=== PATIENT | female | born 1935 | race African-American/Black ===

== ENCOUNTER 2017-12-05 13:35 | Inpatient (IN) | payer OTHER, MEDICAID ==
[~2017-12-05] VITALS: Ht 162.6 cm; Wt 40.8 kg
[2017-12-05 13:38] VITALS: BP 117/68
--- NOTE | 2017-12-05 13:45 | NUR ---
PATIENT [place] FROM [facility], PT'S PMD HAD PT COME TO ER FOR FURTHER EVALUATION AND TREATMENT, LAST HGB 6.5 COLLECTED 12/04/2017, ASYSTEMPMATIC, DENIES RECTAL BLEEDING OR HEMATEMESIS, AAOX4; LUNGS CLEAR BL; HR EVEN AND REGULAR; PT DENIES ANY FEVER, CP, SOB, OR COUGH AT THIS TIME; DENIES PAIN; VSS; DENIES N/V/D; SKIN IS PINK/WARM/DRY. GT IN PLACE NOTED, INCONTINENT WITH B&B'S, LEFT BKA NOTED WITH PROSTHETIC LEGS, PATIENT POSITIONED FOR COMFORT; HOB ELEVATED; BEDRAILS UP X2; BED DOWN. ER MD MADE AWARE OF PT STATUS.
[2017-12-05] MEDS ORDERED: XALOS BOTH EYES (14:02)
[2017-12-05] MEDS ORDERED: FER300L GT (14:02)
[2017-12-05] MEDS ORDERED: DORZ10SO23 BOTH EYES (14:02)
[2017-12-05] MEDS ORDERED: ALPOS BOTH EYES (14:02)
[2017-12-05] MEDS ORDERED: ALBU0.0912 IH (14:02)
--- NOTE | 2017-12-05 14:30 | NUR ---
Patient being evaluated by physician at bedside.
[2017-12-05 14:57] LABS: BASOPHILS % (AUTO) 0.1 % (0.0-2.0); HEMATOCRIT 23.8 % (36-48); HEMOGLOBIN 7.7 g/dL (12.0-16.0); LYMPHOCYTES # (AUTO) 1.4 K/uL (2.5-16.5); LYMPHOCYTES % (AUTO) 29.5 % (20.5-51.1); MEAN CORPUSCULAR HEMOGLOBIN 33 pg (27-31); MEAN CORPUSCULAR HGB CONC 33 g/dL (33-37); MEAN CORPUSCULAR VOLUME 102.3 fL (80-94); MONOCYTES # (AUTO) 0.8 K/uL (0.8-1.0); MONOCYTES % (AUTO) 15.8 % (1.7-9.3); NEUTROPHILS # (AUTO) 2.6 K/uL (1.8-7.7); NEUTROPHILS % (AUTO) 53.6 % (42.2-75.2); PLATELET COUNT (AUTO) 114 K/uL (140-450); RED BLOOD CELL COUNT(AUTO) 2.33 MIL/uL (4.20-5.40); RED CELL DISTRIBUTION WIDTH 22.6 % (11.6-13.7); WHITE BLOOD COUNT (AUTO) 4.8 K/uL (4.8-10.8)
[2017-12-05 15:09] LABS: ALBUMIN 2.7 g/dL (3.4-5.0); ANION GAP 10.9 (8-16); ASPARTATE AMINOTRANSFERASE 87 U/L (15-37); CARBON DIOXIDE 25.5 mmol/L (21-32); CHLORIDE 99 mmol/L (98-107); CREATININE 1.4 mg/dL (0.6-1.3); GLUCOSE 152 mg/dL (74-106); POTASSIUM 4.4 mmol/L (3.5-5.1); SODIUM SERUM 131 mmol/L (136-145); TOTAL BILIRUBIN 0.3 mg/dL (0.0-1.0); UREA NITROGEN, BLOOD 59 mg/dL (7-18)
--- NOTE | 2017-12-05 15:30 | NUR ---
PT IS RESTING IN BED, NO S/S OF DISTRESS, DENIES PAIN, VSS.
[2017-12-05] MEDS ORDERED: LORazepam 2 MG/ML VIAL IM/IVP PRN (15:40)
[2017-12-05] MEDS ORDERED: MORPHINE SULFATE 2 MG/ML SYR IVP PRN (15:40)
[2017-12-05] MEDS ORDERED: DOCUSATE SODIUM 100 MG GELCAP PO PRN (15:40)
[2017-12-05] MEDS ORDERED: HYDROcodone/APAP 5/325 MG 1 TAB TAB PO PRN (15:40)
[2017-12-05] MEDS ORDERED: ZOLPIDEM 5 MG TAB PO PRN (15:40)
[2017-12-05] MEDS: NACL 0.9% 1,000 ML IV SCH (15:40)
[2017-12-05] MEDS ORDERED: ONDANSETRON 4 MG/2 ML VIAL IM/IVP PRN (15:40)
[2017-12-05] MEDS ORDERED: ACETAMINOPHEN 325 MG TAB PO PRN (15:40)
[2017-12-05 16:12] LABS: PROTHROMBIN TIME 10.7 secs (10.8-13.4)
[2017-12-05 16:23] LABS: CHOL/HDL RATIO 1.9 (1-4.5); MAGNESIUM 1.7 mg/dL (1.8-2.4); PHOSPHORUS 3.8 mg/dL (2.5-4.9); THYROID STIMULATING HORMONE 1.08 uIU/mL (0.34-3.74)
--- NOTE | 2017-12-05 16:40 | NUR ---
Patient will be admitted to care of DR. ARMENTA. Admited to TELE. Will go to room 107A. Belongings list completed. Report to STEVE RN AT BEDSIDE, VSS, DENIES PAIN. .
--- NOTE | 2017-12-05 16:40 | NUR ---
Admitted from ER , with chief complaint of ABNORMAL LABS , 82 y/o ,Female, Appropriate, AAOX4, NO S/S OF ACUTE DISTRESS. G-TUBE NOTED, LEFT BKA NOTED. PT oriented to call light, bed, phone,television, bathroom, smoking policy, visiting hours, procedures, ID bracelet on. Belongings list checked. CALL LIGHT WITHIN REACH. SAFETY MEASURES ENSURED. WILL CONTINUE TO MONITOR.
[2017-12-05 16:52] VITALS: BP 113/60
[2017-12-05] MEDS ORDERED: MAG SULF 2000 MG/WATER PREMIX 50 ML IV ONE (18:35)
[2017-12-05] MEDS ORDERED: APIX2.5 PO (18:38)
[2017-12-05] MEDS ORDERED: MAGNESIUM SULFATE 1GM in DEXTROSE 5% 100 ML PREMIX IV SCH (18:45)
[2017-12-05] MEDS ORDERED: DEXTROSE 50% 50 ML SYR IVP PRN (18:45)
--- NOTE | 2017-12-05 19:08 | NUR ---
ENDORSED PLAN OF CARE TO NIGHT RN.
--- NOTE | 2017-12-05 19:09 | NUR ---
RECEIVED BEDSIDE REPORT FROM DAY SHIFT NURSE STEVE RN, PT STABLE, NO DISTRESS NOTED, IV TO L AC 20G RUNNING NS @ 60ML/HR, PATENT, INTACT, INFUSING WELL, PT ON ROOM AIR, NO SOB, PT STATED HAVING NO PAIN AT THIS MOMENT, INITIAL ASSESSMENT DONE, ALL SAFETY PRECAUTION MET, WILL CONTINUE TO MONITOR.
[2017-12-05 20:00] VITALS: BP 105/59
[2017-12-05] MEDS ORDERED: FOLIC ACID 1 MG TAB PO SCH (20:00)
[2017-12-05] MEDS ORDERED: CYANOCOBALAMIN 100 MCG TAB PO SCH (20:00)
--- NOTE | 2017-12-05 20:25 | NUR ---
PT STATED HAS BEEN TAKING MEDICATION THROUGH GTUBE, MEDICATION ADMINISTERED THROUGH G TUBE, PT TOLERATED WELL, G TUBE HAS NO RESIDUAL, PT STABLE, CALL LIGHT WITHIN REACH, WILL CONTINUE TO MONITOR.
[2017-12-05] MEDS: APIXABAN 2.5 MG TAB PO SCH (20:28)
[2017-12-05] MEDS: BLOOD GLUCOSE MONITORING 1 DEV DEV FS SCH (20:30)
--- NOTE | 2017-12-05 20:45 | NUR ---
CALLED SAFETY ADMINISTRATOR MARTÍN REGARDING PT MAGNESIUM ORDER NOT AVAILABLE AT UNIT, KENO CLERK STATED UNDERSTANDING, WILL LOOK FOR THE MEDICATION. PT RESTING, NO DISTRESS NOTED, CALL LIGHT WITHIN REACH, WILL CONTINUE TO MONITOR.
[2017-12-05] MEDS ORDERED: MAGNESIUM SULFATE 50% 1000 MG/2 ML VIAL IV ONE ×3 (20:54→23:25)
[2017-12-05] MEDS ORDERED: NON-FORMULARY ITEM (Dorzolamide HCl/Timolol Maleat (Dorzolamide-Timolol Eye Drops) 1 DROP) BOTH EYES SCH (21:00)
[2017-12-05] MEDS ORDERED: MISC INJECTION 1 EA in DEXTROSE 5% 100 ML IV SCH (21:00)
--- NOTE | 2017-12-05 21:15 | NUR ---
MAGNESIUM INFUSION STARTED, PT TOLERATED WELL, NO DISTRESS NOTED, CALL LIGHT WITHIN REACH, WILL CONTINUE TO MONITOR.
[2017-12-05] MEDS: MAGNESIUM SULFATE IV SCH ×2 (21:25→23:35)
[2017-12-05] MEDS: DEXTROSE 5% IV SCH ×2 (21:25→23:35)
--- NOTE | 2017-12-05 21:51 | NUR ---
NOTIFIED DR. CRESPO AND FORD REGARDING UA ORDERED AND PT UNABLE TO URINATE IN THE RESTROOM AND HAS BEEN INCONTINENT, STATED UNDERSTANDING, STATED WILL PUT IN ORDER FOR STRAIGHT CATH, WILL CONTINUE WITH ORDERS.
--- NOTE | 2017-12-05 23:35 | NUR ---
2ND BAG OF MAGNESIUM ADMINISTERED, PT TOLERATED WELL, NO DISTRESS NOTED, CALL LIGHT WITHIN REACH, WILL CONTINUE TO MONITOR.
[2017-12-06] VITALS: BP 137/71
--- NOTE | 2017-12-06 02:04 | NUR ---
ATTEMPT TO STRAIGHT CATH PT, PT REFUSED STRAIGHT CATH, PT STABLE, NO DISTRESS NOTED, CALL LIGHT WITHIN REACH, WILL CONTINUE TO MONITOR.
--- NOTE | 2017-12-06 03:55 | NUR ---
CHECKED ON PT, PT SLEEPING, V/S TAKEN, WNL, NO DISTRESS NOTED, CALL LIGHT WITHIN REACH, WILL CONTINUE TO MONITOR.
[2017-12-06 04:00] VITALS: BP 128/61
[2017-12-06] MEDS: BLOOD GLUCOSE MONITORING 1 DEV DEV FS SCH ×4 (06:02→21:07)
--- NOTE | 2017-12-06 06:05 | NUR ---
CHECKED PT BLOOD SUGAR 86, PT TOLERATED WELL. PT STABLE, NO DISTRESS NOTED, CALL LIGHT WITHIN REACH, WILL CONTINUE TO MONITOR.
--- NOTE | 2017-12-06 07:10 | NUR ---
ENDORSED PLAN OF CARE TO DAY SHIFT NURSE [facility] RN, PT STABLE, NO DISTRESS NOTED, CALL LIGHT WITHIN REACH.
--- NOTE | 2017-12-06 07:10 | NUR ---
RECEIVED BEDSIDE REPORT FROM HARPER LUNA, PT STABLE, RESTING IN BED, ON RA, IV IN LEFT AC RUNNING AT 60 ML/HR. G-TUBE CLEAN AND DRESSING INTACT, UPDATED BOARD, EXPLAINED PLAN OF CARE, CALL LIGHT WITHIN REACH, BED IN LOWEST POSITION, V/S TAKEN, TOLERATED WELL, WILL CONTINUE TO MONITOR.
[2017-12-06 08:00] VITALS: BP 148/71
[2017-12-06] MEDS: FERROUS SULFATE 300 MG/5 ML UDC GT SCH (08:45)
[2017-12-06] MEDS: APIXABAN 2.5 MG TAB PO SCH ×2 (08:46→21:07)
[2017-12-06] MEDS: NACL 0.9% 1,000 ML IV SCH (08:50)
--- NOTE | 2017-12-06 08:50 | NUR ---
STARTED NEW BAG IVF 1000 ML NACL IN L AC RUNNING AT 60 ML. SITE CLEAN AND PATENT.
[2017-12-06] MEDS ORDERED: CYANOCOBALAMIN 100 MCG TAB PO SCH (09:00)
[2017-12-06] MEDS ORDERED: FOLIC ACID 1 MG TAB PO SCH (09:00)
[2017-12-06] MEDS: BRIMONIDINE TARTRATE 0.2% OP 5 ML BTL BOTH EYES SCH ×3 (09:00→21:06)
[2017-12-06 09:15] LABS: TRANSFERRIN 226 mg/dL (200-370)
[2017-12-06 09:16] LABS: BASOPHILS % (AUTO) 0.2 % (0.0-2.0); EOSINOPHILS # (AUTO) 0.1 K/uL (0-0.4); EOSINOPHILS % (AUTO) 1.9 % (0.0-4.0); HEMATOCRIT 24.7 % (36-48); LYMPHOCYTES # (AUTO) 1.3 K/uL (2.5-16.5); MEAN CORPUSCULAR HEMOGLOBIN 33 pg (27-31); MEAN CORPUSCULAR HGB CONC 32 g/dL (33-37); MEAN CORPUSCULAR VOLUME 102.1 fL (80-94); MONOCYTES # (AUTO) 0.5 K/uL (0.8-1.0); MONOCYTES % (AUTO) 15.3 % (1.7-9.3); NEUTROPHILS # (AUTO) 1.3 K/uL (1.8-7.7); NEUTROPHILS % (AUTO) 41.6 % (42.2-75.2); PLATELET COUNT (AUTO) 117 K/uL (140-450); RED BLOOD CELL COUNT(AUTO) 2.42 MIL/uL (4.20-5.40); RED CELL DISTRIBUTION WIDTH 22.4 % (11.6-13.7); WHITE BLOOD COUNT (AUTO) 3.1 K/uL (4.8-10.8)
[2017-12-06 09:33] LABS: ANION GAP 11.6 (8-16); CARBON DIOXIDE 24.5 mmol/L (21-32); CHLORIDE 102 mmol/L (98-107); CREATININE 1.4 mg/dL (0.6-1.3); GLUCOSE 84 mg/dL (74-106); POTASSIUM 4.1 mmol/L (3.5-5.1); SODIUM SERUM 134 mmol/L (136-145); UREA NITROGEN, BLOOD 53 mg/dL (7-18)
[2017-12-06 09:42] LABS: MAGNESIUM 2.6 mg/dL (1.8-2.4); PHOSPHORUS 3.9 mg/dL (2.5-4.9)
--- NOTE | 2017-12-06 09:51 | NUR ---
PATIENT HAS BEEN SCREENED AND CATEGORIZED HIGH NUTRITION RISK. PATIENT WILL BE SEEN WITHIN 1-2 DAYS OF ADMISSION. 12/06/17-12/07/[address]
--- NOTE | 2017-12-06 10:41 | NUR ---
PT RESTING IN BED, NO SIGNS OF DISTRESS, CALL LIGHT WITHIN REACH, WILL CONTINUE TO MONITOR.
[2017-12-06] MEDS: NICOTINE TRANSD SYS 14 MG/24 HR PATCH TD SCH (11:00)
--- NOTE | 2017-12-06 11:11 | NUR ---
CALLED NEXT OF KIN ([facility]), LEFT MESSAGE TO CALL BACK REGARDING PTS GLAUCOMA MEDICATIONS.
--- NOTE | 2017-12-06 11:50 | NUR ---
SINDI VALENTIN FROM [facility] WILL COME AND BRING PTS GLAUCOMA EYE DROPS IN ABOUT 1-2 HOURS. WILL GIVE TO PHARMACY AND ADMINISTER PER DRS ORDER.
[2017-12-06 12:15] LABS: FOLIC ACID > 20.00 ng/mL (>3.0)
[2017-12-06 12:37] VITALS: BP 117/56
--- NOTE | 2017-12-06 14:54 | NUR ---
CONSULTED WITH RADIATION CONTROL TECHNICIAN AGUSTIN TO START TUBE FEEDINGS AND SWALLOW EVALUATION, WILL CONSULT WITH FOR ORDERS. Addendum: 12/06/17 at 1456 by Haydee Barkley RN DR HERRMANN
--- NOTE | 2017-12-06 15:40 | NUR ---
3 AT HOME GLAUCOMA MEDICATIONS TAKEN TO PHARMACY. WILL GIVE ACCORDING TO DRS ORDER AND ONCE ON UNIT.
--- NOTE | 2017-12-06 16:08 | NUR ---
12/06/17 RD INITIAL ASSESSMENT COMPLETED PLEASE REFER TO NUTRITION ASSESSMENT UNDER CARE ACTIVITY FOR ESTIMATED NUTRITIONAL NEEDS. RD RECOMMENDATIONS: 1. RECOMMEND ORDERING A BEDSIDE SWALLOW EVALUATION TO RULE OUT ANY CHEWING/SWALLOWING DIFFICULTIES PT REPORT EATING A REGULAR DIET PRIOR TO ADMISSION. 2. IF PATIENT WILL START ON TUBE FEEDING PER MDS DISCRETION, CONSIDER ORDERING GLUCERNA 1.2 AT GOAL RATE OF 50 ML/HR + 150 ML OF FREE WATER FLUSH Q6H. START AT 20 ML/HR AND ADVANCE TOLERATED TO GOAL RATE. AT 50 ML/HR TUBE FEEDING WILL PROVIDE 1200 ML OF TOTAL VOLUME, 1440 KCAL, 72 GM OF PROTEIN, AND 966 ML OF FREE WATER (ADEQUATE TO MEET 100% OF ESTIMATED ENERGY NEEDS AND ~109% OF ESTIMATED PROTEIN NEEDS). 3. RD WILL F/U 2-3 DAYS; HIGH RISK. AGUSTIN SCOTT, RD
[2017-12-06] MEDS ORDERED: ALBUTEROL SULFATE/IPRATROPIU 3 ML SOL IH PRN (16:20)
--- NOTE | 2017-12-06 16:22 | NUR ---
STARTED TUBE FEEDINGS PER MD ORDER, PT REQUESTED TO REST AND TAKE A NAP PRIOR TO STRAIGHT CATH. WILL STRAIGHT CATH AND SEND SAMPLE AFTER PTS NAPS.
[2017-12-06 16:28] VITALS: BP 123/59
--- NOTE | 2017-12-06 16:37 | NUR ---
SPUTUM SAMPLE COLLECTED BY RT, SENT TO LAB.
[2017-12-06] MEDS: PIPER/TAZO 2.25GM/D5W PREMIX 50 ML IV SCH ×2 (17:34→23:41)
[2017-12-06 18:08] LABS: BILIRUBIN,URINE NEGATIVE (NEGATIVE); BLOOD, URINE TRACE-I (NEGATIVE); COLOR,URINE YELLOW (YELLOW); LEUKOCYTE ESTERASE ,URINE 2+ (NEGATIVE); NITRITE, URINE NEGATIVE (NEGATIVE); PH,URINE 5.5 (5.0-9.0); UGLUCOSE NEGATIVE (NEGATIVE)
--- NOTE | 2017-12-06 18:10 | NUR ---
URINE SAMPLE COLLECTED SENT TO LAB.
[2017-12-06 18:32] LABS: APPEARANCE,URINE HAZY (CLEAR)
[2017-12-06 18:50] LABS: BARBITURATE, URINE NEGATIVE ng/ml (NEG <=200); BENZODIAZEPINE, URINE NEGATIVE ng/mL (NEG <=200); CANNABINOID, URINE NEGATIVE ng/mL (NEG <=50); COCAINE, URINE NEGATIVE ng/mL (NEG <=300); OPIATE, URINE NEGATIVE ng/mL (NEG <=2000); PHENCYCLIDINE SCREEN,URINE NEGATIVE ng/mL (NEG <=25)
[2017-12-06 18:55] LABS: RBC,URINE 0-5 (RARE) /HPF (0-5)
--- NOTE | 2017-12-06 19:32 | NUR ---
ENDORSED PT TO COLLECTION CORRESPONDENT NURSE SARA. PAUL HALL.
--- NOTE | 2017-12-06 19:33 | NUR ---
RECEIVED BEDSIDE REPORT FROM DAY SHIFT NURSE ADRIANE-RN. PT AOX4-STABLE, RESTING IN BED, ON RA, IV IN LEFT AC RUNNING AT 60 ML/HR. G-TUBE CLEAN AND DRESSING INTACT WITH ZERO RESIDUAL RUNNING AT 35ML/HR GLUCERNA 1.2. DISCUSSED PLAN OF CARE AND PT VERBALIZED UNDERSTANDING. NO S/S OF RESPIRATORY DISTRESS OR DISCOMFORT NOTED AT THIS TIME. UPDATED BOARD. BED IN LOWEST POSITION, BED BREAKS ON, BOTH SIDE RAILS UP, HOB ELEVATED FOR ASPIRATION PRECAUTIONS, BED ALARM ON. BED SIDE TABLE AND CALL LIGHT WITHIN REACH. WILL CONTINUE TO MONITOR.
[2017-12-06] MEDS: ALBUTEROL SULFATE/IPRATROPIU 3 ML SOL IH SCH (19:52)
[2017-12-06 20:00] VITALS: BP 95/52
--- NOTE | 2017-12-06 20:00 | NUR ---
VITAL SIGNS TAKEN AND TOLERATED WELL. NO S/S OF RESPIRATORY DISTRESS OR DISCOMFORT NOTED AT THIS TIME. WILL CONTINUE TO MONITOR.
--- NOTE | 2017-12-06 20:15 | NUR ---
BLOOD GLUCOSE 98-NO INSULIN COVERAGE NEEDED.
[2017-12-06] MEDS: DORZOLAMIDE 2% OP 10 ML BTL OP SCH (21:05)
[2017-12-06] MEDS: LATANOPROST 0.005% OP 2.5 ML BTL BOTH EYES SCH (21:06)
--- NOTE | 2017-12-06 21:10 | NUR ---
SCHEDULED MEDICATION GIVEN AND TOLERATED WELL. NO S/S OF RESPIRATORY DISTRESS OR DISCOMFORT NOTED AT THIS TIME. WILL CONTINUE TO MONITOR.
--- NOTE | 2017-12-06 23:00 | NUR ---
PT RESTING COMFORTABLY IN BED WATCHING TV. WILL CONTINUE TO MONITOR.
--- NOTE | 2017-12-06 23:45 | NUR ---
SCHEDULED MEDICATION GIVEN AND TOLERATED WELL. PT ASKED WHAT THE ANTIBIOTIC WAS FOR. EDUCATED PT THAT SHE HAS ASPIRATED PNEUMONIA. NO S/S OF RESPIRATORY DISTRESS OR DISCOMFORT NOTED AT THIS TIME. PT CONTINUES TO REST IN BED WATCHING TV. WILL CONTINUE TO MONITOR.
[2017-12-07] VITALS: BP 126/62
--- NOTE | 2017-12-07 | NUR ---
VITAL SIGNS TAKEN AND TOLERATED WELL. NO S/S OF RESPIRATORY DISTRESS OR DISCOMFORT NOTED AT THIS TIME. WILL CONTINUE TO MONITOR.
[2017-12-07] MEDS: NACL 0.9% 1,000 ML IV SCH ×2 (00:38→16:05)
--- NOTE | 2017-12-07 02:00 | NUR ---
PT SLEEPING AT THIS TIME. NO S/S OF RESPIRATORY DISTRESS OR DISCOMFORT NOTED AT THIS TIME. WILL CONTINUE TO MONITOR. +
[2017-12-07 04:00] VITALS: BP 119/55
--- NOTE | 2017-12-07 04:00 | NUR ---
VITAL SIGNS TAKEN AND TOLERATED WELL. NO S/S OF RESPIRATORY DISTRESS OR DISCOMFORT NOTED. PT RESTING IN BED. WILL CONTINUE TO MONITOR.
[2017-12-07] MEDS: PIPER/TAZO 2.25GM/D5W PREMIX 50 ML IV SCH ×3 (05:28→18:56)
[2017-12-07 05:35] LABS: FERRITIN 359 ng/mL (15-150)
[2017-12-07] MEDS: BLOOD GLUCOSE MONITORING 1 DEV DEV FS SCH ×4 (06:41→20:27)
--- NOTE | 2017-12-07 07:10 | NUR ---
ENDORSED PT CARE TO DAY SHIFT NURSE SUMMER-RN FOR CONTINUITY OF CARE.
--- NOTE | 2017-12-07 07:10 | NUR ---
RECEIVED REPORT FROM GEODETIC SURVEY DIRECTOR NURSE PAUL BROWN STABLE IN BED, NO REPORTS OF PAIN, TUBE FEEDINGS AT 30 ML/PER WITH 150 WATER FLUSH Q6H. IV AT 60ML PER HOUR NACL, IV SITE PATENT AND INTACT, CALL LIGHT WITHIN REACH, BED IN LOWEST POSITION. EXPLAINED PLAN OF CARE UPDATED BOARD.
[2017-12-07] MEDS: ALBUTEROL SULFATE/IPRATROPIU 3 ML SOL IH SCH ×3 (07:25→19:00)
[2017-12-07 08:00] VITALS: BP 138/66
--- NOTE | 2017-12-07 08:30 | NUR ---
PT RESTING IN BED, CHANGED, PROVIDED KOFI CARE, APPLIED PROTECTED OPTIFOAM, SKIN INTACT, AND WITHOUT REDNESS. CALL LIGHT WITHIN REACH.
[2017-12-07] MEDS: FERROUS SULFATE 300 MG/5 ML UDC GT SCH (08:42)
[2017-12-07] MEDS: LACTOBACILLUS RHAMNOSUS GG 1 EACH CAP GT SCH (08:42)
[2017-12-07] MEDS: BRIMONIDINE TARTRATE 0.2% OP 5 ML BTL BOTH EYES SCH ×2 (08:43→20:29)
[2017-12-07] MEDS: DORZOLAMIDE 2% OP 10 ML BTL OP SCH ×2 (08:44→20:31)
[2017-12-07] MEDS: APIXABAN 2.5 MG TAB PO SCH (08:45)
[2017-12-07 09:16] LABS: HEMATOCRIT 24.5 % (36-48); HEMOGLOBIN 7.9 g/dL (12.0-16.0); MEAN CORPUSCULAR HEMOGLOBIN 33 pg (27-31); MEAN CORPUSCULAR HGB CONC 32 g/dL (33-37); MEAN CORPUSCULAR VOLUME 103.2 fL (80-94); PLATELET COUNT (AUTO) 116 K/uL (140-450); RED BLOOD CELL COUNT(AUTO) 2.37 MIL/uL (4.20-5.40); WHITE BLOOD COUNT (AUTO) 3.3 K/uL (4.8-10.8)
[2017-12-07 10:16] LABS: ANION GAP 14.9 (8-16); CARBON DIOXIDE 22.6 mmol/L (21-32); CHLORIDE 103 mmol/L (98-107); CREATININE 1.6 mg/dL (0.6-1.3); GLUCOSE 101 mg/dL (74-106); MAGNESIUM 2.1 mg/dL (1.8-2.4); POTASSIUM 4.5 mmol/L (3.5-5.1); SODIUM SERUM 136 mmol/L (136-145); UREA NITROGEN, BLOOD 48 mg/dL (7-18)
--- NOTE | 2017-12-07 10:31 | NUR ---
VERBAL ORDER FROM DR OLIVA FOR STAT B12 AND FOLIC ACID. WILL PUT IN VERBAL ORDER.
[2017-12-07 10:52] LABS: BASOPHILS % (MANUAL) 0 % (0-2); EOSINOPHILS % (MANUAL) 1 % (0-4); LYMPHOCYTES % (MANUAL) 42 % (20-46); MONOCYTES % (MANUAL) 18 % (5-12)
--- NOTE | 2017-12-07 11:29 | NUR ---
CALL FROM LAB SPOKE WITH YOUNG, POSITIVE MRSA OF NARES, WILL CONTACT DR AND PLACE PT ON CONTACT ISOLATION PRECAUTIONS.
--- NOTE | 2017-12-07 11:31 | NUR ---
REPORTED POSITIVE MRSA OF NARES TO DR HERRMANN.
[2017-12-07] MEDS ORDERED: MUPIROCIN 2% OINT 22 GM TUBE TP SCH (12:00)
--- NOTE | 2017-12-07 12:00 | NUR ---
G-TUBE CLEAN AND INTACT, PATENT, RESIDUES AT 10 ML. WILL INCREASE TO 40 ML. WILL CONTINUE TO MONITOR. CALL LIGHT WITHIN REACH.
--- NOTE | 2017-12-07 12:16 | NUR ---
CALLED PHARMACY, NO ANSWER, WILL CALL AGAIN IF NEEDED AFTER 1300. WILL GIVE BACTROBAN ONCE ON UNIT.
[2017-12-07] MEDS: CHLORHEXADINE GLUC 2% CLOTH TP SCH (12:28)
[2017-12-07] MEDS: NICOTINE TRANSD SYS 14 MG/24 HR PATCH TD SCH ×2 (12:28→12:29)
--- NOTE | 2017-12-07 14:00 | NUR ---
G TUBE SITE CLEAN AND PATENT. RESIDUALS 25, INCREASED FEEDING TO 50ML/HR. WILL CONTINUE TO MONITOR. HOB AT 30 DEGREES.
[2017-12-07 15:05] VITALS: BP 122/68
--- NOTE | 2017-12-07 15:24 | NUR ---
PT RESTING IN BED, CALL LIGHT WITHIN REACH, WILL CONTINUE TO MONITOR.
[2017-12-07 16:28] VITALS: BP 116/54
--- NOTE | 2017-12-07 19:31 | NUR ---
BLOOD GLUCOSE 92- NO INSULIN COVERAGE NEEDED
--- NOTE | 2017-12-07 19:31 | NUR ---
ENDORSED PT TO DIVERSITY INTERN NURSE PT STABLE.
--- NOTE | 2017-12-07 19:32 | NUR ---
RECEIVED BEDSIDE REPORT FROM DAY SHIFT NURSE ADRIANE-RN. PT AOX4-STABLE, RESTING IN BED, ON RA, IV IN LEFT AC RUNNING AT 60 ML/HR. G-TUBE CLEAN AND DRESSING INTACT WITH ZERO RESIDUAL RUNNING AT 50ML/HR GLUCERNA 1.2. CONTACT PRECAUTIONS FOR MRSA OF NARES. DISCUSSED PLAN OF CARE AND PT VERBALIZED UNDERSTANDING. NO S/S OF RESPIRATORY DISTRESS OR DISCOMFORT NOTED AT THIS TIME. UPDATED BOARD. BED IN LOWEST POSITION, BED BREAKS ON, BOTH SIDE RAILS UP, HOB ELEVATED FOR ASPIRATION PRECAUTIONS, BED ALARM ON. BED SIDE TABLE AND CALL LIGHT WITHIN REACH. WILL CONTINUE TO MONITOR.
[2017-12-07 20:00] VITALS: BP 120/57
--- NOTE | 2017-12-07 20:00 | NUR ---
VITAL SIGNS TAKEN AND TOLERATED WELL. NO S/S OF RESPIRATORY DISTRESS OR DISCOMFORT NOTED AT THIS TIME. WILL CONTINUE TO MONITOR.
[2017-12-07] MEDS: LATANOPROST 0.005% OP 2.5 ML BTL BOTH EYES SCH (20:30)
--- NOTE | 2017-12-07 20:35 | NUR ---
SCHEDULED MEDICATION GIVEN AND TOLERATED WELL. NO S/S OF RESPIRATORY DISTRESS OR DISCOMFORT NEEDED AT THIS TIME. WILL CONTINUE TO MONITOR.
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
[2017-12-07] MEDS ORDERED: ACETAMINOPHEN EXTRA STRENGTH 500 MG TAB PO SCH (23:30)
[2017-12-07] MEDS ORDERED: Z-GUARD PASTE TP SCH (23:30)
[2017-12-08] VITALS: BP 141/60
--- NOTE | 2017-12-08 | NUR ---
VITAL SIGNS TAKEN AND TOLERATED WELL. NO S/S OF RESPIRATORY DISTRESS OR DISCOMFORT NOTED AT THIS TIME. WILL CONTINUE TO MONITOR.
[2017-12-08] MEDS: PIPER/TAZO 2.25GM/D5W PREMIX 50 ML IV SCH ×3 (01:49→12:37)
[2017-12-08] MEDS: ZOLPIDEM 5 MG TAB PO PRN ×2 (01:52→23:44)
--- NOTE | 2017-12-08 02:00 | NUR ---
SCHEDULED MEDICATION GIVEN AND TOLERATED WELL. NO S/S OF RESPIRATORY DISTRESS OR DISCOMFORT NOTED AT THIS TIME. PT ALSO REQUESTED SLEEPING AID AND WAS ADMINISTERED VIA G-TUBE. PT TOLERATED WELL. WILL CONTINUE TO MONITOR.
--- NOTE | 2017-12-08 04:00 | NUR ---
PT CONTINUES TO SLEEP IN BED. NO S/S OF RESPIRATORY DISTRESS OR DISCOMFORT NOTED AT THIS TIME. WILL CONTINUE TO MONITOR.
[2017-12-08] MEDS: NACL 0.9% 1,000 ML IV SCH ×2 (04:41→05:27)
[2017-12-08] MEDS: BLOOD GLUCOSE MONITORING 1 DEV DEV FS SCH ×4 (05:25→21:18)
--- NOTE | 2017-12-08 05:25 | NUR ---
BLOOD GLUCOSE 117. NO INSULIN COVERAGE NEEDED.
--- NOTE | 2017-12-08 05:30 | NUR ---
SCHEDULED MEDICATION GIVEN AND TOLERATED WELL. NO S/S OF RESPIRATORY DISTRESS OR DISCOMFORT AT THIS TIME. WILL CONTINUE TO MONITOR.
[2017-12-08] MEDS: ALBUTEROL SULFATE/IPRATROPIU 3 ML SOL IH SCH ×3 (07:00→18:59)
--- NOTE | 2017-12-08 07:16 | NUR ---
PT REFUSED BREATHING TX NO SIGNS OF DISTRESS NOTED AT THIS TIME
--- NOTE | 2017-12-08 07:23 | NUR ---
ENDORSED PT CARE TO DAY SHIFT NURSE SADI FOR CONTINUITY OF CARE.
--- NOTE | 2017-12-08 07:24 | NUR ---
RECEIVED REPORT FROM AUTOMOTIVE LOT ATTENDANT NURSE STEPHANIE AT BEDSIDE FOR CONTINUITY OF CARE. PT IS AWAKE AND ORIENTED X4. INTRODUCED SELF AND UPDATED BOARD. LUNG SOUNDS CLEAR ON AUSCULTATION. O2 SAT 99% ON RA. NO SOB. NO COUGH. PT WITH L BKA. SKIN INTACT. OPTIFOAM DRESSING TO SACRUM. DRY AND INTACT. SKIN WARM AND DRY. G-TUBE IN PLACE. PT DENIES PAIN. STATED "I DID NOT GET ENOUGH SLEEP LAST NIGHT AND I JUST WANT TO SLEEP NOW." NO SIGNS OF DISTRESS. CALL LIGHT WITHIN REACH. BED IN LOW POSITION WHEELS LOCKED, WILL CONTINUE TO MONITOR.
[2017-12-08 08:00] VITALS: BP 135/72
[2017-12-08 08:26] LABS: BASOPHILS % (AUTO) 0.3 % (0.0-2.0); EOSINOPHILS # (AUTO) 0.1 K/uL (0-0.4); EOSINOPHILS % (AUTO) 2.4 % (0.0-4.0); HEMATOCRIT 24.7 % (36-48); LYMPHOCYTES # (AUTO) 1.5 K/uL (2.5-16.5); LYMPHOCYTES % (AUTO) 39.9 % (20.5-51.1); MEAN CORPUSCULAR HEMOGLOBIN 34 pg (27-31); MEAN CORPUSCULAR HGB CONC 33 g/dL (33-37); MEAN CORPUSCULAR VOLUME 103.8 fL (80-94); MONOCYTES # (AUTO) 0.6 K/uL (0.8-1.0); MONOCYTES % (AUTO) 16.1 % (1.7-9.3); NEUTROPHILS # (AUTO) 1.5 K/uL (1.8-7.7); NEUTROPHILS % (AUTO) 41.3 % (42.2-75.2); PLATELET COUNT (AUTO) 124 K/uL (140-450); RED BLOOD CELL COUNT(AUTO) 2.38 MIL/uL (4.20-5.40); WHITE BLOOD COUNT (AUTO) 3.7 K/uL (4.8-10.8)
[2017-12-08 08:27] LABS: MAGNESIUM 1.6 mg/dL (1.8-2.4)
[2017-12-08 08:31] LABS: ANION GAP 13.5 (8-16); CHLORIDE 103 mmol/L (98-107); CREATININE 1.6 mg/dL (0.6-1.3); GLUCOSE 114 mg/dL (74-106); POTASSIUM 4.5 mmol/L (3.5-5.1); SODIUM SERUM 135 mmol/L (136-145); UREA NITROGEN, BLOOD 42 mg/dL (7-18)
[2017-12-08] MEDS: FERROUS SULFATE 300 MG/5 ML UDC GT SCH (09:54)
[2017-12-08] MEDS: LACTOBACILLUS RHAMNOSUS GG 1 EACH CAP GT SCH (09:54)
--- NOTE | 2017-12-08 10:38 | NUR ---
CARD LACER NOTE Bedside swallow evaluation attempted 2 times today. Both times pt refused. Will re-attempt swallow evaluation tomorrow. Rowdy Rawls, CARD LACER
--- NOTE | 2017-12-08 10:40 | NUR ---
REPORTED TO DR. BARBOSA PT REFUSED SWALLOW EVAL AND MAG 1.6
[2017-12-08] MEDS: NICOTINE TRANSD SYS 14 MG/24 HR PATCH TD SCH (11:35)
[2017-12-08] MEDS: DORZOLAMIDE 2% OP 10 ML BTL OP SCH ×2 (11:36→21:04)
[2017-12-08] MEDS: BRIMONIDINE TARTRATE 0.2% OP 5 ML BTL BOTH EYES SCH ×2 (11:36→21:04)
[2017-12-08] MEDS: Z-GUARD PASTE TP SCH ×2 (11:37→21:18)
[2017-12-08] MEDS: MUPIROCIN CA NASAL 2% 1GM TUBE NS SCH (12:59)
[2017-12-08] MEDS: CHLORHEXADINE GLUC 2% CLOTH TP SCH (12:59)
--- NOTE | 2017-12-08 14:30 | NUR ---
PT NPO STATUS ORDERED BY DR. WASHINGTON. STOPPED G-TUBE FEEDING. PT LYING IN BED COMFORTABLY. CALL LIGHT WITHIN REACH. WILL CONTINUE TO MONITOR.
[2017-12-08 16:00] VITALS: BP 120/57
[2017-12-08] MEDS ORDERED: DEXT 5% / NACL 0.45% 1,000 ML IV SCH (17:20)
[2017-12-08] MEDS: LACTULOSE 20 GM/30 ML UDC PO SCH ×2 (18:08→21:03)
[2017-12-08] MEDS ORDERED: MAGNESIUM CITRATE 300 ML BTL PO SCH (19:00)
--- NOTE | 2017-12-08 19:20 | NUR ---
ENDORSED PT TO SENIOR ACCOUNTING MANAGER NURSE JEREMY AT BEDSIDE FOR CONTINUITY OF CARE. PT IN STABLE CONDITION.
--- NOTE | 2017-12-08 19:21 | NUR ---
RECEIVED BEDSIDE REPORT FROM DAY SHIFT NURSE DIONICIO RN, PT STABLE, NO DISTRESS NOTED, IV TO L FA 20G RUNNING NS @ 40ML/HR, INTACT, PATENT, INFUSING WELL, PT ON ROOM AIR , NO SOB, INITIAL ASSESSMENT DONE, ALL SAFETY PRECAUTION MET, WILL CONTINUE TO MONITOR. Addendum: 12/09/17 at 0107 by Marina Cook RN G TUBE IN PLACE, TUBE FEEDING ALREADY STOPPED PER ORDER FOR PROCEDURE
[2017-12-08] MEDS ORDERED: MAG SULF 2000 MG/WATER PREMIX 100 ML IV SCH (19:45)
--- NOTE | 2017-12-08 19:45 | NUR ---
TALKED TO DR. YOUNGBLOOD REGARDING PT MAGNESIUM 1.6 AND NO MAGNESIUM REPLENISHMENT HAS BEEN ORDERED, STATED UNDERSTANDING AND WILL ORDER MEDICATION.
[2017-12-08] MEDS ORDERED: MAG SULF 2000 MG/WATER PREMIX 50 ML IV SCH ×2 (20:55→21:40)
[2017-12-08] MEDS: POLYETHYLENE GLYCOL 17 GM/PKT PO SCH (21:03)
--- NOTE | 2017-12-08 21:03 | NUR ---
DUE MEDICATION ADMINISTERED, PT TOLERATED WELL, NO DISTRESS NOTED, CALL LIGHT WITHIN REACH, WILL CONTINUE TO MONITOR.
[2017-12-08] MEDS: LATANOPROST 0.005% OP 2.5 ML BTL BOTH EYES SCH (21:17)
--- NOTE | 2017-12-08 21:50 | NUR ---
MAGNESIUM SULFATE 2G ORDERED, BUT WAS NOT AVAILABLE IN THE UNIT, CALLED JUTE BAG CLIPPER PRINCE, JUTE BAG CLIPPER BROUGHT 1G BAGS PREMIXED, CALLED PHARMACY REGARDING ORDER, PHARMACY IS UNABLE TO CHANGE, TALKED TO DR REGARDING ORDER, STATED WAS NOT ABLE TO ORDER 1G BAG BECAUSE IT IS NOT IN THE SYSTEM, PHARMACY TALKED TO DR. YOUNGBLOOD TO CHANGE ORDER TO MAG OXIDE INSTEAD. WILL PUT IN ORDERS
--- NOTE | 2017-12-08 22:13 | NUR ---
CALLED PHARMACY REGARDING MAGNESIUM OXIDE, PHARMACY SAID IT IS OK TO CRUSH MEDICATION AND GIVE IT THROUGH G TUBE.
[2017-12-08] MEDS ORDERED: MAGNESIUM OXIDE 400 MG TAB PO SCH (22:30)
--- NOTE | 2017-12-08 23:09 | NUR ---
DUE MAGNESIUM GIVEN, PT TOLERATED WELL, NO DISTRESS NOTED, CALL LIGHT WITHIN REACH, WILL CONTINUE TO MONITOR.
--- NOTE | 2017-12-08 23:44 | NUR ---
PT STATED HAVING TROUBLE SLEEPING, SLEEPING MEDICATION GIVEN PER MD ORDER, PT TOLERATED WELL, NO DISTRESS NOTED, CALL LIGHT WITHIN REACH, WILL CONTINUE TO MONITOR.
--- NOTE | 2017-12-09 02:00 | NUR ---
PT SLEEPING, NO DISTRESS NOTED, CALL LIGHT WITHIN REACH, WILL CONTINUE TO MONITOR.
--- NOTE | 2017-12-09 03:37 | NUR ---
CHANGED AND CLEAN PT, PT TOLERATED WELL, NO DISTRESS NOTED, CALL LIGHT WITHIN REACH, WILL CONTINUE TO MONITOR.
--- NOTE | 2017-12-09 05:10 | NUR ---
CHECKED ON PT, PT SLEEPING, NO DISTRESS NOTED, CALL LIGHT WITHIN REACH, WILL CONTINUE TO MONITOR.
[2017-12-09 06:21] LABS: FOLIC ACID > 20.00 ng/mL (>3.0)
[2017-12-09] MEDS: BLOOD GLUCOSE MONITORING 1 DEV DEV FS SCH ×4 (06:40→20:57)
--- NOTE | 2017-12-09 06:40 | NUR ---
CHECKED PT BLOOD SUGAR 96, NO INSULIN GIVEN PER SLIDING SCALE, PT STABLE, NO DISTRESS NOTED, CALL LIGHT WITHIN REACH, WILL CONTINUE TO MONITOR.
--- NOTE | 2017-12-09 07:13 | NUR ---
ENDORSED PATIENT TO DAY SHIFT NURSE DIONICIO SALEEM, PT STABLE, NO DISTRESS NOTED, CALL LIGHT WITHIN REACH.
--- NOTE | 2017-12-09 07:14 | NUR ---
RECEIVED REPORT FROM LABORATORY ASSISTANT NURSE JEREMY AT BEDSIDE FOR CONTINUITY OF CARE. PT IS AWAKE AND ORIENTED X4. INTRODUCED SELF AND UPDATED BOARD. PT NPO. G-TUBE CLAMPED. IV TO L WRIST 24G INTACT. PT DENIES PAIN. WITH L BKA. SKIN INTACT. LUNG SOUNDS CLEAR ON AUSCULTATION. O2 SAT 96% ON RA. NO SOB. NO COUGH. NO SIGNS OF DISTRESS. PT SITTING IN BED WATCHING TV. CALL LIGHT WITHIN REACH. BED IN LOW POSITION. WILL CONTINUE TO MONITOR.
[2017-12-09] MEDS: ALBUTEROL SULFATE/IPRATROPIU 3 ML SOL IH SCH ×3 (07:16→19:02)
[2017-12-09 07:32] LABS: MAGNESIUM 1.7 mg/dL (1.8-2.4); PHOSPHORUS 3.8 mg/dL (2.5-4.9)
[2017-12-09 08:00] VITALS: BP 125/66
[2017-12-09 08:37] LABS: ALBUMIN 2.5 g/dL (3.4-5.0); ANION GAP 14.9 (8-16); ASPARTATE AMINOTRANSFERASE 57 U/L (15-37); CARBON DIOXIDE 20.4 mmol/L (21-32); CHLORIDE 110 mmol/L (98-107); CREATININE 1.6 mg/dL (0.6-1.3); GLUCOSE 108 mg/dL (74-106); POTASSIUM 4.3 mmol/L (3.5-5.1); SODIUM SERUM 141 mmol/L (136-145); TOTAL BILIRUBIN 0.2 mg/dL (0.0-1.0); UREA NITROGEN, BLOOD 34 mg/dL (7-18)
[2017-12-09] MEDS: BRIMONIDINE TARTRATE 0.2% OP 5 ML BTL BOTH EYES SCH ×2 (08:48→21:04)
[2017-12-09] MEDS: DORZOLAMIDE 2% OP 10 ML BTL OP SCH ×2 (08:49→21:05)
[2017-12-09] MEDS: LACTOBACILLUS RHAMNOSUS GG 1 EACH CAP GT SCH (09:00)
[2017-12-09] MEDS: LACTULOSE 20 GM/30 ML UDC PO SCH (09:00)
[2017-12-09] MEDS: Z-GUARD PASTE TP SCH ×2 (09:00→20:58)
[2017-12-09] MEDS: POLYETHYLENE GLYCOL 17 GM/PKT PO SCH ×2 (09:00→20:55)
--- NOTE | 2017-12-09 09:30 | NUR ---
PT HAD INCONTINENT URINE AND LIQUID STOOL. CHANGED LINENS AND GOWN. PT TOLERATED WELL. PT CONTINUED ON NPO. PT AWARE OF COLONOSCOPY TODAY. NO SIGNS OF DISTRESS. CALL LIGHT WITHIN REACH. WILL CONTINUE TO MONITOR.
--- NOTE | 2017-12-09 10:00 | NUR ---
DR. WASHINGTON CALLED. REPORTED PT IS READY FOR COLONOSCOPY. WILL WAIT FOR SCHEDULE
[2017-12-09 10:49] LABS: MEAN CORPUSCULAR HEMOGLOBIN 33 pg (27-31); MEAN CORPUSCULAR HGB CONC 32 g/dL (33-37); MEAN CORPUSCULAR VOLUME 103.6 fL (80-94); RED BLOOD CELL COUNT(AUTO) 2.28 MIL/uL (4.20-5.40); RED CELL DISTRIBUTION WIDTH 22.2 % (11.6-13.7); WHITE BLOOD COUNT (AUTO) 3.3 K/uL (4.8-10.8)
[2017-12-09 10:56] LABS: HEMATOCRIT 23.9 % (36-48); HEMOGLOBIN 7.7 g/dL (12.0-16.0); PLATELET COUNT (AUTO) 122 K/uL (140-450)
[2017-12-09 10:57] LABS: EOSINOPHILS % (MANUAL) 2 % (0-4); LYMPHOCYTES % (MANUAL) 36 % (20-46); MONOCYTES % (MANUAL) 10 % (5-12)
[2017-12-09] MEDS ORDERED: diphenhydrAMINE 50 MG/ML VIAL ONE (11:22)
[2017-12-09] MEDS ORDERED: MIDAZOLAM 2 MG/2 ML VIAL ONE (11:22)
[2017-12-09] MEDS ORDERED: fentaNYL 0.05 MG/ML VIAL ONE (11:22)
--- NOTE | 2017-12-09 11:35 | NUR ---
PT PICKED UP FOR COLONOSCOPY. LEFT WITH RN AND OR TECH.
--- NOTE | 2017-12-09 12:42 | NUR ---
MOTOCROSS RACER NOTE 1235 Per conference w/ HARPER Haro, pt is having colonoscopy, and while pt has been put on puree diet by , swallow eval order has not been cx. Swallow evaluation will be held until next day, HARPER Haro voicing agreement.
--- NOTE | 2017-12-09 12:45 | NUR ---
PT ARRIVED FROM COLONOSCOPY. BEDSIDE REPORT GIVEN BY NIKKI SALEEM. REPORTED PT HAS DIVERTICULOSIS. PT IS ASLEEP BUT ABLE TO WAKE UP WHEN CALLING HER NAME. VS: TEMP 97, O2 SAT 100% ON O2 NC 2L/MIN, RR 16, BP 95/46, HR 82. NO SIGNS OF DISTRESS. WILL CONTINUE TO MONITOR.
[2017-12-09] MEDS: PIPER/TAZO 2.25GM/D5W PREMIX 50 ML IV SCH ×2 (13:11→17:23)
[2017-12-09] MEDS: MUPIROCIN CA NASAL 2% 1GM TUBE NS SCH (13:12)
[2017-12-09] MEDS: NICOTINE TRANSD SYS 14 MG/24 HR PATCH TD SCH (13:23)
--- NOTE | 2017-12-09 13:23 | NUR ---
REMOVED NICOTINE PATCH FROM L ARM. ADMINISTERED NEW NICOTINE PATCH TO R ARM. PT TOLERATING WELL. NO SIGNS OF DISTRESS. CALL LIGHT AND CELL PHONE WITHIN REACH. WILL CONTINUE TO MONITOR.
[2017-12-09] MEDS: CHLORHEXADINE GLUC 2% CLOTH TP SCH (13:24)
[2017-12-09] MEDS: INSULIN LISPRO SLIDING SCALE 100 UNITS/ML VIAL SUBQ PRN ×2 (13:29→21:07)
[2017-12-09] MEDS ORDERED: fentaNYL 0.05 MG/ML VIAL IVP ONE (13:40)
[2017-12-09] MEDS ORDERED: MIDAZOLAM 2 MG/2 ML VIAL IVP ONE (13:40)
--- NOTE | 2017-12-09 14:02 | NUR ---
SPOKE WITH DR. HERRMANN. PT WILL BE STARTED ON TUBE FEEDING AND PUREE DIET. SAID WILL CANCEL SWALLOW EVAL. WILL WAIT FOR ORDERS.
--- NOTE | 2017-12-09 14:30 | NUR ---
STARTED G-TUBE FEEDING TWO SINDI HN AT 40ML/HR. FREE WATER FLUSH 30ML Q6H. PT TOLERATING WELL. PT HAD INCONTINENT URINE. CHANGED PT AND CLEANED SHEETS. NO SIGNS OF DISTRESS. CALL LIGHT WITHIN REACH. WILL CONTINUE TO MONITOR.
--- NOTE | 2017-12-09 15:00 | NUR ---
Community Outreach Worker Notes: I call [facility] to discuss and confirm Patient's information. I spoke to Holly and discuss Patient's status, according to Holly (facility pressed or blown glass worker) Patient is able to return to the facility and is on a 7 days skilled bed hold. Per Holly patient do not have family close but has a friend of the family that is often visiting patient. Per Holly she will be visiting patient this evening and will continue communicating with these editorial writer to coordinate patient's discharge and return to the facility.
[2017-12-09 15:14] LABS: HEPATITIS A ANTIBODY IGM Negative (Negative); HEPATITIS B CORE AB TOTAL Negative (Negative); HEPATITIS B SURFACE ANTIBODY Non Reactive (.); HEPATITIS B SURFACE ANTIGEN Negative (Negative)
--- NOTE | 2017-12-09 15:15 | NUR ---
wireworker supervisor Notes: I contacted Patient's Friend Dmitriy Barcenas at I introduce myself and role as a medical translator. He verbalized understanding and I discuss and gather patient's information as well provided him with updates to patient status. Per Dmitriy patient is close to the family and he is very involved with her care I ask about advance directives and he stated that they had discuss the issue but has not done one. I inform him that I left information and forms with Patient. Per Dmitriy he will discuss and follow up with patient when he visits her tomorrow. He did not have any questions at the time, he thanked me for the information and I ended the call.
--- NOTE | 2017-12-09 15:23 | NUR ---
12/09/17 RD FOLLOW UP COMPLETED PLEASE REFER TO NUTRITION PROGRESS NOTE UNDER CARE ACTIVITY FOR ESTIMATED NUTRITIONAL NEEDS. CONTINUE PUREE DIET AND TF. RECOMMEND D/C TWOCAL HN AND INTIATING GLUCERNA 1.2 @ GOAL RATE 50ML/H WITH H20 FLUSH 170 ML Q4H. THIS WILL PROVIDE 1440 KCAL AND 72 GM PROTEIN. 2. RECOMMEND SUPPLEMENTING WITH IRON, IF INDICATED 3. FOLLOW-UP NUTRITION EDUCATION ON WEIGHT GAIN 4. RD TO FOLLOW-UP 2-3 DAYS, HIGH RISK SHANT HUNTER RD
[2017-12-09 16:00] VITALS: BP 100/53
--- NOTE | 2017-12-09 16:00 | NUR ---
LIQUOR BLENDER BARBIE FROM [facility] CAME AND SAW PT. UPDATED PT HAD COLONOSCOPY TODAY AND NO D/C ORDERS TODAY. GAVE LIQUOR BLENDER KATE'S BUSINESS CARD TO BARBIE. WILL FOLLOW UP WITH HER.
--- NOTE | 2017-12-09 17:00 | NUR ---
CHECKED PT'S BS WAS 54. ADMINISTERED DEXTROSE IVP. RECHECKED BS WAS 165. NO S/S OF HYPOGLYCEMIA OR HYPERGLYCEMIA. PT STATED SHE WANTED SOME ICE CHIPS. GAVE PT ICE CHIPS. TOLERATED WELL. CALL LIGHT WITHIN REACH. WILL CONTINUE TO MONITOR.
--- NOTE | 2017-12-09 18:30 | NUR ---
PT STARTED ON PUREE DIET. ASSISTED BY PROTECTIVE SERVICES SOCIAL WORKER. PT TOLERATED FOODS WELL. NO DYSPHAGIA. PT ABLE TO FEED SELF.
--- NOTE | 2017-12-09 19:00 | NUR ---
SPOKE WITH DR. OLIVA CONSULT PT OK TO GO BACK TO SNF
--- NOTE | 2017-12-09 19:10 | NUR ---
RECEIVED FROM AM RN IN BED SITTING UP. ABLE TO VERBALIZE NEEDS WELL. CALL LIGHT WITH IN REACH. NO SOB. DENIES PAIN AT TH IS TIME. PT. GT FEEDING . NO RESIDUAL NOTED. ISOLATION PRECAUTIONS RT MRSA NARES AND SPUTUM. PRESENTLY WITH BREATHING TREATMENT ON GOING. DX. SEVERE ANEMIA , LEFT LOWER LUNG PNA, DIVERTICULITIS.
--- NOTE | 2017-12-09 19:15 | NUR ---
ENDORSED PT TO HISTORIOGRAPHY TEACHER NURSE ZOË AT BEDSIDE FOR CONTINUITY OF CARE. PT IN STABLE CONDITION.
[2017-12-09 20:00] VITALS: BP 110/68
[2017-12-09] MEDS: LATANOPROST 0.005% OP 2.5 ML BTL BOTH EYES SCH (21:05)
--- NOTE | 2017-12-09 22:40 | NUR ---
STILL AWAKE AND WATCHING TV. NO COMPLAINTS DONE.
--- NOTE | 2017-12-10 | NUR ---
PT. TURNED TO SIDES. PILLOW SUPPORT TO PRESSURE AREAS. KEPT CLEAN AND DRY. HOD UP 30 DEGREES FOR ASPIRATION PRECAUTION.
[2017-12-10] MEDS: PIPER/TAZO 2.25GM/D5W PREMIX 50 ML IV SCH ×4 (00:51→17:14)
--- NOTE | 2017-12-10 04:34 | NUR ---
SLEEPING. NO RESTLESSNESS.
[2017-12-10] MEDS: BLOOD GLUCOSE MONITORING 1 DEV DEV FS SCH ×4 (05:17→21:58)
--- NOTE | 2017-12-10 06:21 | NUR ---
PT. AM PERSONAL HYGIENE RENDERED. KEPT CLEAN,DRY AND COMFORTABLE. PT. HAD 1 BM. ON ISOLATION PRECAUTION MRSA NARES AND SPUTUM. SLEPT WELL THIS SHIFT. ABLE TO VERBALIZE NEEDS WELL.
--- NOTE | 2017-12-10 07:05 | NUR ---
RECEIVED REPORT FROM NIGHT RN. PT RESTING IN BED. NO S/S OF ACUTE DISTRESS. PT DENIES PAIN. CALL LIGHT WITHIN REACH. SAFETY MEASURES ENSURED. WILL CONTINUE TO MONITOR.
[2017-12-10 07:33] LABS: MEAN CORPUSCULAR HEMOGLOBIN 34 pg (27-31); MEAN CORPUSCULAR HGB CONC 33 g/dL (33-37)
[2017-12-10 07:46] LABS: HEMATOCRIT 20.5 % (36-48); HEMOGLOBIN 6.8 g/dL (12.0-16.0); MEAN CORPUSCULAR VOLUME 102.2 fL (80-94); RED CELL DISTRIBUTION WIDTH 21.6 % (11.6-13.7); WHITE BLOOD COUNT (AUTO) 3.7 K/uL (4.8-10.8)
[2017-12-10 07:47] LABS: PLATELET COUNT (AUTO) 107 K/uL (140-450)
[2017-12-10 07:49] LABS: ANION GAP 11.4 (8-16); CHLORIDE 105 mmol/L (98-107); CREATININE 1.8 mg/dL (0.6-1.3); GLUCOSE 114 mg/dL (74-106); POTASSIUM 4.4 mmol/L (3.5-5.1); SODIUM SERUM 133 mmol/L (136-145); UREA NITROGEN, BLOOD 38 mg/dL (7-18)
[2017-12-10] MEDS: ALBUTEROL SULFATE/IPRATROPIU 3 ML SOL IH SCH ×3 (07:50→19:57)
[2017-12-10 07:57] LABS: MAGNESIUM 1.3 mg/dL (1.8-2.4); PHOSPHORUS 2.5 mg/dL (2.5-4.9)
[2017-12-10 08:00] VITALS: BP 98/44
[2017-12-10] MEDS: LACTOBACILLUS RHAMNOSUS GG 1 EACH CAP GT SCH (08:35)
[2017-12-10] MEDS: MAGNESIUM OXIDE 400 MG TAB PO SCH (08:35)
[2017-12-10] MEDS: BRIMONIDINE TARTRATE 0.2% OP 5 ML BTL BOTH EYES SCH ×2 (08:35→21:00)
[2017-12-10] MEDS: POLYETHYLENE GLYCOL 17 GM/PKT PO SCH (08:36)
[2017-12-10] MEDS: DORZOLAMIDE 2% OP 10 ML BTL OP SCH ×2 (08:36→21:00)
[2017-12-10] MEDS: Z-GUARD PASTE TP SCH ×2 (08:39→21:00)
[2017-12-10] MEDS ORDERED: LORATADINE 10 MG TAB PO SCH (08:52)
[2017-12-10] MEDS ORDERED: ACETAMINOPHEN EXTRA STRENGTH 500 MG TAB PO SCH (08:52)
[2017-12-10 09:00] LABS: EOSINOPHILS % (MANUAL) 2 % (0-4); LYMPHOCYTES % (MANUAL) 32 % (20-46); MONOCYTES % (MANUAL) 13 % (5-12)
[2017-12-10] MEDS: NICOTINE TRANSD SYS 14 MG/24 HR PATCH TD SCH (11:17)
[2017-12-10] MEDS: CHLORHEXADINE GLUC 2% CLOTH TP SCH (11:21)
[2017-12-10] MEDS: INSULIN LISPRO SLIDING SCALE 100 UNITS/ML VIAL SUBQ PRN ×3 (11:30→21:56)
--- NOTE | 2017-12-10 11:45 | NUR ---
PT REFUSES IV START. PT CURRENTLY HAS A 24 GAUGE. EXPLAINED NEED FOR BIGGER GAUGE FOR BLOOD PT VERBALIZED UNDERSTANDING BUT STILL SAYS NO TO IV START. MADE AWARE. PER MD OKAY TO WAIT TO GIVE BLOOD UNTIL LATER.
--- NOTE | 2017-12-10 11:58 | NUR ---
DESIGN DIRECTOR NOTE [id number] Bedside swallow evaluation completed following clearance by HARPER Mccarty. Please refer to DESIGN DIRECTOR evaluation for full report. Recommend: -Puree texture + thin liquids for oral gratification 2/2 primary g-tube feeding -Dietary consult to determine pt PO preferences -Upright at 90 during and 20 min after PO intake -Tray set up assistance and occasional monitoring for safety, pt can feed self -Small bites/sips, slow rate, alternate bites/sips -No further DESIGN DIRECTOR intervention indicated. PVE w/MUSEUM ASSISTANT re: results and recommendations [id number]: CI G8997: CI G8998: CI Swallow NOMS 2
[2017-12-10] MEDS: MUPIROCIN CA NASAL 2% 1GM TUBE NS SCH (12:25)
--- NOTE | 2017-12-10 13:40 | NUR ---
PT SITTING UP IN BED, WATCHING TV. NO COMPLAINTS AT THIS TIME. WILL CONTINUE TO MONITOR PT.
[2017-12-10] MEDS ORDERED: MAG SULF 2000 MG/WATER PREMIX 50 ML IV ONE (14:05)
[2017-12-10] MEDS: MAGNESIUM SULFATE 1GM in DEXTROSE 5% 100 ML PREMIX IV SCH ×2 (14:28→16:39)
--- NOTE | 2017-12-10 14:40 | NUR ---
PT STATES SHE DOESN'T WANT TO BE POKED RIGHT NOW.
--- NOTE | 2017-12-10 16:40 | NUR ---
PT STATES SHE WANTS TO WAIT UNTIL AFTER DINNER TO GET A NEW IV BECAUSE IT WILL HURT HER ARM TOO MUCH AND SHE WONT BE ABLE TO EAT. PT STATES " I PROMISE AFTER I EAT"
--- NOTE | 2017-12-10 19:23 | NUR ---
ENDORSED PLAN OF CARE TO NIGHT RN.
--- NOTE | 2017-12-10 19:25 | NUR ---
RECEIVED PT FROM STEVE RN PT AAOX3 ON IV ON LEFT UA INFUSING WELL, HL ON LEFT WRIST PATENT G TUBE FEEDING CLAMP AT THIS TIME PT BEDBOUND LEFT BKA PENDING TO START ONE UNIT OF PRBC INITIAL ASSESSMENT DONE
[2017-12-10 20:00] VITALS: BP 120/52
[2017-12-10] MEDS: LATANOPROST 0.005% OP 2.5 ML BTL BOTH EYES SCH (21:00)
--- NOTE | 2017-12-10 21:00 | NUR ---
BLOOD SUGAR TEST 164 COVERAGE WITH 2 UNITS SUBQ HUMALOG FOLLOW PROTOCOL
--- NOTE | 2017-12-10 21:50 | NUR ---
FIRST UNIS OF PRBC STARTED NOT SIGNS OF DISTRESS NOTED, PTREPOSITIONED Q2H
--- NOTE | 2017-12-11 | NUR ---
AT MIDNIGHT FIRST UNIT OF BLOOD FINISH WITH NO PROBLEMS
[2017-12-11] MEDS: PIPER/TAZO 2.25GM/D5W PREMIX 50 ML IV SCH ×3 (00:36→12:25)
--- NOTE | 2017-12-11 03:00 | NUR ---
SPONGE BATH GIVEN LINEN CHANGED PT WELL TOLERATED G TUBE FEEDING REPOSITIONED Q2H
[2017-12-11] MEDS: BLOOD GLUCOSE MONITORING 1 DEV DEV FS SCH ×3 (05:58→16:30)
--- NOTE | 2017-12-11 06:30 | NUR ---
BLOOD SUGAR TEST 108 NOT COVERAGE PT REMAIN STABLE AT THIS TIME
[2017-12-11] MEDS: ALBUTEROL SULFATE/IPRATROPIU 3 ML SOL IH SCH ×2 (07:10→14:00)
[2017-12-11 07:17] LABS: BASOPHILS % (AUTO) 0.3 % (0.0-2.0); EOSINOPHILS # (AUTO) 0.1 K/uL (0-0.4); EOSINOPHILS % (AUTO) 3.4 % (0.0-4.0); HEMATOCRIT 31.9 % (36-48); HEMOGLOBIN 10.5 g/dL (12.0-16.0); LYMPHOCYTES # (AUTO) 1.3 K/uL (2.5-16.5); LYMPHOCYTES % (AUTO) 39.6 % (20.5-51.1); MEAN CORPUSCULAR HEMOGLOBIN 32 pg (27-31); MEAN CORPUSCULAR HGB CONC 33 g/dL (33-37); MEAN CORPUSCULAR VOLUME 96.7 fL (80-94); MONOCYTES # (AUTO) 0.5 K/uL (0.8-1.0); MONOCYTES % (AUTO) 15.4 % (1.7-9.3); NEUTROPHILS # (AUTO) 1.4 K/uL (1.8-7.7); NEUTROPHILS % (AUTO) 41.3 % (42.2-75.2); PLATELET COUNT (AUTO) 102 K/uL (140-450); RED CELL DISTRIBUTION WIDTH 23.5 % (11.6-13.7); WHITE BLOOD COUNT (AUTO) 3.3 K/uL (4.8-10.8)
--- NOTE | 2017-12-11 07:27 | NUR ---
RECEIVED REPORT FROM NIGHTSHIFT NURSE AT BEDSIDE. PATIENT IS AWAKE AT THIS TIME IN SEMI-FOWLERS POSITION. PATIENT SHOWS NO OBVIOUS SIGNS OF DISTRESS OR PAIN. PATIENT ALERT AND ORIENTED X3. PATIENT RECEIVING BREATHING TREATMENT AT THIS TIME. PATIENT SATURATION AT 98%. PATIENT HAS A G-TUBE IN PLACE RUNNING TWO SINDI HN AT 50 ML/HR. UPDATED BOARD IN PATIENT'S ROOM. PUT CALL LIGHT WITHIN REACH OF PATIENT. WILL CONTINUE TO MONITOR PATIENT.
--- NOTE | 2017-12-11 07:27 | NUR ---
RECEIVED PATIENT ON ROOM AIR, O2 SAT 98%. SCHEDULED BREATHING TREATMENT ADMINISTERED. PATIENT TOLERATED TX WELL, NO ADVERSE SIDE EFFECTS. NO RESPIRATORY DISTRESS NOTED AT THIS TIME. WILL CONTINUE TO MONITOR.
[2017-12-11 07:40] LABS: ANION GAP 13.6 (8-16); CARBON DIOXIDE 23.1 mmol/L (21-32); CHLORIDE 103 mmol/L (98-107); GLUCOSE 123 mg/dL (74-106); POTASSIUM 4.7 mmol/L (3.5-5.1); SODIUM SERUM 135 mmol/L (136-145); UREA NITROGEN, BLOOD 34 mg/dL (7-18)
[2017-12-11 07:52] LABS: MAGNESIUM 1.7 mg/dL (1.8-2.4); PHOSPHORUS 3.6 mg/dL (2.5-4.9)
[2017-12-11 08:00] VITALS: BP 131/64
[2017-12-11] MEDS: Z-GUARD PASTE TP SCH (09:00)
[2017-12-11] MEDS ORDERED: LACT10CA1 PO (09:12)
[2017-12-11] MEDS ORDERED: PIPE50SO5 IV (09:12)
[2017-12-11] MEDS: LACTOBACILLUS RHAMNOSUS GG 1 EACH CAP GT SCH (09:25)
[2017-12-11] MEDS: MAGNESIUM OXIDE 400 MG TAB PO SCH (09:25)
--- NOTE | 2017-12-11 09:25 | NUR ---
PATIENT TOOK ORAL AM MEDICATIONS. AWAITING DELIVERY OF EYE DROP MEDICATIONS FROM PHARMACY.
[2017-12-11] MEDS ORDERED: DORZOLAMIDE 2% OP 10 ML BTL BOTH EYES SCH (10:30)
[2017-12-11] MEDS ORDERED: NICO14TD30 TD (10:57)
[2017-12-11] MEDS ORDERED: MAGNESIUM OXIDE 400 MG TAB PO SCH (11:30)
--- NOTE | 2017-12-11 11:45 | NUR ---
Lube Man Notes: I called [facility] at I spoke to Rosita from admission to informed her about patient's discharge today. Per Rosita Patient's Lube Man is not in the facility at this time therefore; she took the information and provided me with patient's room number 31-C accepting Dr. Robbins. I asked Rosita if there is a way that the facility can set up transport for patient to go back to facility today after her discharge from [facility]. Per Rosita [facility] is the one that usually would set up the transport back to their facility and she is not in their facility at this time. I told Rosita that it will be no problem and I will informed Forming Machine Tender Day to set up transport back for Patient. She thanked me and I ended the conversation. I faxed Patient's clinical information, order to [facility] at .
--- NOTE | 2017-12-11 12:25 | NUR ---
HUNG 50 ML ZOSYN FOR PATIENT. WILL CONTINUE TO MONITOR PATIENT.
--- NOTE | 2017-12-11 12:25 | NUR ---
GAVE ZOSYN 2.25 G/50 ML ZOSYN TO PATIENT VIA IVPB. PATIENT TOLERATED WELL.
[2017-12-11] MEDS: CHLORHEXADINE GLUC 2% CLOTH TP SCH (12:39)
[2017-12-11] MEDS: NICOTINE TRANSD SYS 14 MG/24 HR PATCH TD SCH (12:39)
--- NOTE | 2017-12-11 12:47 | NUR ---
CM NOTE SPOKE WITH BALAJI HAYES [facility]# [phone], MACHINE MAINTENANCE TECHNICIAN TIME 1630 TODAY GOING TO [facility] [address] STEPHENS NUMBER TO CALL FOR REPORT [phone]. CHARGE NURSE MARIO AND NURSE DEJAH WHITAKER
--- NOTE | 2017-12-11 12:55 | NUR ---
PATIENT FINISHED ZOSYN 50 ML.
[2017-12-11] MEDS: MUPIROCIN CA NASAL 2% 1GM TUBE NS SCH (13:00)
--- NOTE | 2017-12-11 14:02 | NUR ---
PATIENT RESTING IN BED AT THIS TIME. NO DISTRESS NOTED. WILL CONTINUE TO MONITOR PATIENT.
--- NOTE | 2017-12-11 14:05 | NUR ---
PATIENT REFUSED BREATHING TREATMENT AT THIS TIME. PATIENT STATES SHE WANTS TO GO TO SLEEP. NO RESPIRATORY DISTRESS NOTED. WILL CONTINUE TO MONITOR.
[2017-12-11 15:20] LABS: BILIRUBIN,DIRECT 0.1 mg/dL (0.0-0.3); TOTAL BILIRUBIN 0.1 mg/dL (0.0-1.0)
--- NOTE | 2017-12-11 16:20 | NUR ---
CALLED REPORT TO ADRIANA SALEEM OF [facility]. GAVE CALL BACK NUMBER FOR ADDITIONAL QUESTIONS.
--- NOTE | 2017-12-11 18:50 | NUR ---
FAXED PATIENT'S MEDICAL RECORD TO DR. VILA OFFICE.
--- NOTE | 2017-12-11 19:09 | NUR ---
PATIENT TRANSFERRED TO [facility]. PATIENT GATHERED ALL BELONGINGS. CUT OFF PATIENT'S WRIST BAND. PATIENT LEFT THE UNIT VIA [facility] IN STABLE CONDITION WITH ALL BELONGINGS.
[2017-12-11] MEDS ORDERED: BRIMONIDINE TARTRATE 0.2% OP 5 ML BTL BOTH EYES SCH (21:00)
[2017-12-12] MEDS ORDERED: BRIMONIDINE TARTRATE 0.2% OP 5 ML BTL BOTH EYES SCH (09:00)
[2017-12-12 12:33] LABS: ANTI-NUCLEAR ANTIBODY TITER Negative (.)
== END 2017-12-11 19:09 | DRG 177 ==
LOC: MED 13:35 → MTU 15:40
PROVIDERS: ADMIT General Practice; ATTEND General Practice
PROC: 0DJD8ZZ Inspection of Lower Intestinal Tract, Via Natural or Artificial Opening Endoscopic (ICD-10-PCS; principal; 2017-12-09 11:30)
PROC: 30233N1 Transfusion of Nonautologous Red Blood Cells into Peripheral Vein, Percutaneous Approach (ICD-10-PCS; 2017-12-10)
DX: J69.0 Pneumonitis due to inhalation of food and vomit (principal); N17.0 Acute kidney failure with tubular necrosis; E43 Unspecified severe protein-calorie malnutrition; E87.1 Hypo-osmolality and hyponatremia; R64 Cachexia; Z68.1 Body mass index [BMI] 19.9 or less, adult; E83.42 Hypomagnesemia; D53.9 Nutritional anemia, unspecified; I10 Essential (primary) hypertension; D69.6 Thrombocytopenia, unspecified; R47.02 Dysphasia; H40.9 Unspecified glaucoma; R62.7 Adult failure to thrive; E11.9 Type 2 diabetes mellitus without complications; J44.9 Chronic obstructive pulmonary disease, unspecified; K57.30 Diverticulosis of large intestine without perforation or abscess without bleeding; Z86.718 Personal history of other venous thrombosis and embolism; Z89.512 Acquired absence of left leg below knee; Z79.899 Other long term (current) drug therapy; Z98.51 Tubal ligation status; Z93.1 Gastrostomy status; F17.210 Nicotine dependence, cigarettes, uncomplicated
CPT/HCPCS: 36415; 71045; 76700; 80048; 80053; 80305; 81001; 82247; 82248; 82272; 82607; 82728; 82746; 82948; 83036; 83540; 83690; 83735; 84100; 84134; 84443; 84484; 85025; 85045; 85610; 85730; 86704; 86706; 86708; 86709; 86803; 86886; 86900; 86901; 86920; 87070; 87081; 87086; 87186; 87205; 87340; 89220; 92610; 93005; 93970; 94640; 97799; 99285; C1758; J1200; J1815; J2250; J2543; J3010; J3475; J7030; J7060; J7620; P9016; Q0092; Q0163

== ENCOUNTER 2017-12-22 09:42 | Inpatient (IN) | payer OTHER, MEDICAID ==
[~2017-12-22] VITALS: Ht 167.6 cm; Wt 37.2 kg
[~2017-12-22 09:42] MED LIST: ALBU0.0912 IH; ALPOS BOTH EYES; APIX2.5 PO; DORZ10SO23 BOTH EYES; FER300L GT; LACT10CA1 PO; NICO14TD30 TD; PIPE50SO5 IV; XALOS BOTH EYES
--- NOTE | 2017-12-22 09:42 | NUR ---
Patient BIBA to bed 1.
[2017-12-22 09:48] VITALS: BP 137/67
--- NOTE | 2017-12-22 09:50 | NUR ---
PATIENT BIBA C/O BLOOD IN STOOL SINCE LAST NIGHT, MD REFERREL TO CHECK UP. PT IS AAOX3, NO S/S OF DISTRESS, DENIES PAIN, GT IN PLACE, INCONTINENT WITH B&B'S, LEFT BKA NOTED. DENIES N/V/D; SKIN IS PINK/WARM/DRY; LUNGS CLEAR BL; HR EVEN AND REGULAR; PT DENIES ANY FEVER, CP, SOB, OR COUGH AT THIS TIME; VSS; PATIENT POSITIONED FOR COMFORT; HOB ELEVATED; BEDRAILS UP X2; BED DOWN. ER MD MADE AWARE OF PT STATUS.
--- NOTE | 2017-12-22 09:55 | NUR ---
Patient being evaluated by physician at bedside.
[2017-12-22] MEDS ORDERED: NACL 0.9% 500 ML IV SCH (10:18)
[2017-12-22] MEDS ORDERED: PANTOPRAZOLE 40 MG INJ VIAL IVP ONE (10:20)
[2017-12-22] MEDS ORDERED: FAMOTIDINE 20 MG/2 ML VIAL IVP ONE (10:20)
[2017-12-22 11:19] LABS: HEMATOCRIT 30.5 % (36-48); HEMOGLOBIN 10.1 g/dL (12.0-16.0); MEAN CORPUSCULAR HEMOGLOBIN 32 pg (27-31); MEAN CORPUSCULAR HGB CONC 33 g/dL (33-37); MEAN CORPUSCULAR VOLUME 96.8 fL (80-94); RED BLOOD CELL COUNT(AUTO) 3.16 MIL/uL (4.20-5.40); RED CELL DISTRIBUTION WIDTH 20.1 % (11.6-13.7); WHITE BLOOD COUNT (AUTO) 3.4 K/uL (4.8-10.8)
[2017-12-22 11:20] LABS: BASOPHILS % (AUTO) 1.5 % (0.0-2.0); EOSINOPHILS # (AUTO) 0.1 K/uL (0-0.4); EOSINOPHILS % (AUTO) 2.9 % (0.0-4.0); LYMPHOCYTES # (AUTO) 1.4 K/uL (2.5-16.5); LYMPHOCYTES % (AUTO) 42.5 % (20.5-51.1); MONOCYTES # (AUTO) 0.6 K/uL (0.8-1.0); MONOCYTES % (AUTO) 18.3 % (1.7-9.3); NEUTROPHILS # (AUTO) 1.2 K/uL (1.8-7.7); NEUTROPHILS % (AUTO) 34.8 % (42.2-75.2); PLATELET COUNT (AUTO) 113 K/uL (140-450)
[2017-12-22 11:21] LABS: BASOPHILS # (AUTO) 0.1 K/uL (0.00-0.22)
[2017-12-22 11:26] LABS: PROTHROMBIN TIME 9.9 secs (10.8-13.4)
[2017-12-22 11:31] LABS: ALBUMIN 3.1 g/dL (3.4-5.0); ANION GAP 11.8 (8-16); ASPARTATE AMINOTRANSFERASE 51 U/L (15-37); CARBON DIOXIDE 26.3 mmol/L (21-32); CHLORIDE 99 mmol/L (98-107); GLUCOSE 108 mg/dL (74-106); POTASSIUM 4.1 mmol/L (3.5-5.1); SODIUM SERUM 133 mmol/L (136-145); TOTAL BILIRUBIN 0.2 mg/dL (0.0-1.0)
[2017-12-22 11:33] LABS: UREA NITROGEN, BLOOD 72 mg/dL (7-18)
--- NOTE | 2017-12-22 11:34 | NUR ---
CRITICAL LAB RECEIVED, BUN 72, DR. FINCH NOTIFIED.
[2017-12-22] MEDS ORDERED: ONDANSETRON 4 MG/2 ML VIAL IM/IVP PRN (12:05)
[2017-12-22] MEDS ORDERED: DOCUSATE SODIUM 100 MG GELCAP PO PRN (12:05)
[2017-12-22] MEDS ORDERED: ACETAMINOPHEN 325 MG TAB PO PRN (12:05)
[2017-12-22] MEDS ORDERED: MORPHINE SULFATE 2 MG/ML SYR IVP PRN (12:05)
[2017-12-22] MEDS ORDERED: LORazepam 2 MG/ML VIAL IM/IVP PRN (12:05)
[2017-12-22] MEDS ORDERED: HYDROcodone/APAP 5/325 MG 1 TAB TAB PO PRN (12:05)
--- NOTE | 2017-12-22 12:40 | NUR ---
Patient will be admitted to care of DR. ARMENTA. Admited to TELE. Will go to room 113. Belongings list completed. Report to HARPER DUARTE AT BEDSIDE, PT IS IN STABLE CONDITION AT THIS TIME, VSS, DENIES PAIN.
--- NOTE | 2017-12-22 12:50 | NUR ---
PATIENT BROUGHT TO UNIT FROM ER VIA GURNEY. RECEIVED BEDSIDE REPORT FROM ER NURSE CASI. PATIENT IS AAOX4, NO SIGNS AND SYMPTOMS OF ACUTE DISTRESS NOTED AT THIS TIME. HAS IV TO THE RIGHT AC 22G, SALINE LOCK AT THIS TIME. SHE HAS A G-TUBE. HAS LEFT BKA, OTHERWISE SKIN IS INTACT. DISCUSSED PLAN OF CARE WITH PATIENT AND SHE VERBALIZED UNDERSTANDING. ORIENTED PATIENT TO THE ROOM AND EXPLAINED THE CALL LIGHT. SHE VERBALIZED UNDERSTANDING. BED IN LOWEST POSITION, SIDE RAILS UP X2, CALL LIGHT WITHIN REACH. WILL CONTINUE TO MONITOR.
[2017-12-22 13:00] VITALS: BP 125/66
[2017-12-22 13:00] LABS: MAGNESIUM 1.8 mg/dL (1.8-2.4); PHOSPHORUS 3.7 mg/dL (2.5-4.9); THYROID STIMULATING HORMONE 2.48 uIU/mL (0.34-3.74)
[2017-12-22] MEDS: DEXT 5% / NACL 0.45% 1,000 ML IV SCH (13:00)
--- NOTE | 2017-12-22 14:30 | NUR ---
DR YOUNGBLOOD PERFORMED A FECAL OCCULT AND IT CAME BACK POSITIVE.
[2017-12-22 16:00] VITALS: BP 116/60
[2017-12-22] MEDS: SENNA 8.6 MG TAB PO SCH (18:13)
[2017-12-22] MEDS ORDERED: NICOTINE 14 MG TD SCH (18:45)
[2017-12-22] MEDS ORDERED: ALBUTEROL SULFATE/IPRATROPIU 3 ML SOL IH SCH (19:00)
--- NOTE | 2017-12-22 19:20 | NUR ---
ENDORSED PATIENT TO ACQUISITION SPECIALIST RN FOR CONTINUITY OF CARE. PATIENT IN STABLE CONDITION.
--- NOTE | 2017-12-22 19:25 | NUR ---
RECEIVED PT ON BED, AAOX3, FORGETFUL AT TIMES, VITAL SIGNS STABLE, DENIES ANY PAIN, NO SOB NOTED, G-TUBE CLAMPED, IVF INFUSING WELL, PLAN OF CARE DISCUSS, AWARE OF PLANNED EGD TOMORROW, SAFETY MEASURES IN PLACE, MAINTAINED ON CONTACT ISOLATION, CALL LIGHT WITHIN REACH.
[2017-12-22 20:00] VITALS: BP 130/56
--- NOTE | 2017-12-22 20:35 | NUR ---
PT INCONTINENT OF URINE AND STOOL, BM WITH LOOSE DARK RED BM, PERINEAL CARE DONE, REPOSITIONED AND OFFLOAD PRESSURE AREAS, MONITORED CLOSELY.
[2017-12-22] MEDS: LACTULOSE 20 GM/30 ML UDC PO SCH (21:16)
[2017-12-22] MEDS: PANTOPRAZOLE 40 MG INJ VIAL IVP SCH (21:17)
[2017-12-22] MEDS: LATANOPROST 0.005% OP 2.5 ML BTL BOTH EYES SCH (21:18)
[2017-12-22] MEDS: BRIMONIDINE TARTRATE 0.2% OP 5 ML BTL BOTH EYES SCH (21:19)
[2017-12-22] MEDS: DORZOLAMIDE 2% OP 10 ML BTL BOTH EYES SCH (21:20)
--- NOTE | 2017-12-22 21:30 | NUR ---
NO RESIDUAL NOTED ON G-TUBE, POSITIVE PLACEMENT VERIFIED, DUE MEDS GIVEN THROUGH G-TUBE, TUBE FEEDING OF JEVITY 1.2 STARTED AT 40ML/H WITH WATER FLUSH 50ML Q6H, KEEP HOB ELEVATED AT ALL TIMES, REPOSITIONED Q2H AND OFFLOAD PRESSURE AREAS, ALL NEEDS ANTICIPATED.
[2017-12-22] MEDS: ZOLPIDEM 5 MG TAB PO PRN (21:35)
[2017-12-22] MEDS: NICOTINE TRANSD SYS 14 MG/24 HR PATCH TD SCH (21:41)
[2017-12-23] VITALS: BP 114/58
[2017-12-23] MEDS: DEXT 5% / NACL 0.45% 1,000 ML IV SCH ×2 (00:29→13:28)
--- NOTE | 2017-12-23 03:03 | NUR ---
PT HAD LARGE LOOSE DARK REDDISH BROWN BM, PERINEAL CARE DONE, STRAIGHT CATH DONE TO OBTAIN URINE SPECIMEN FOR URINE TEST, WITH 300ML CLEAR YELLOW URINE OUTPUT, SPECIMEN SENT TO LAB, REPOSITIONED AND OFFLOAD PRESSURE AREAS.
[2017-12-23 04:00] VITALS: BP 132/79
--- NOTE | 2017-12-23 05:30 | NUR ---
PT SLEEPING, NO SIGNS OF DISTRESS, MAINTAINED ON NPO, IVF INFUSING WELL, MONITORED CLOSELY.
[2017-12-23 06:19] LABS: APPEARANCE,URINE SL CLOUDY (CLEAR); BILIRUBIN,URINE NEGATIVE (NEGATIVE); BLOOD, URINE 3+ (NEGATIVE); COLOR,URINE YELLOW (YELLOW); LEUKOCYTE ESTERASE ,URINE 3+ (NEGATIVE); NITRITE, URINE NEGATIVE (NEGATIVE); PH,URINE 6.5 (5.0-9.0); UGLUCOSE NEGATIVE (NEGATIVE)
[2017-12-23 07:09] LABS: RBC,URINE 11-20 (MOD) /HPF (0-5)
[2017-12-23 07:10] LABS: WBC,URINE 16-25 (MOD) /HPF (0-5)
--- NOTE | 2017-12-23 07:20 | NUR ---
RECEIVED BEDSIDE REPORT FROM PLYWOOD STOCK GRADER NURSE. PATIENT IS AWAKE, ALERT AND ORIENTEDX4. NO SIGNS OF DISTRESS ON ROOM AIR. GTUBE IS CLEAN, DRY AND INTACT. SKIN IS INTACT. IV ON R AC 22G INFUSING D5 1/2NS AT 80. IV IS CLEAN, DRY AND INTACT. PATIENT IS INCONTINENT. NPO EXCEPT MEDS. PATIENT IS BED BOUND. NO OTHER COMPLAINTS AT THIS TIME. WILL CONTINUE TO MONITOR THE PATIENT.
--- NOTE | 2017-12-23 07:29 | NUR ---
PT AWAKE, NO SIGNS OF DISTRESS, REPORT GIVEN TO RN PENNY FOR CONTINUITY OF CARE.
[2017-12-23 07:59] LABS: HEMATOCRIT 28.9 % (36-48); HEMOGLOBIN 9.8 g/dL (12.0-16.0); MEAN CORPUSCULAR HEMOGLOBIN 33 pg (27-31); MEAN CORPUSCULAR HGB CONC 34 g/dL (33-37); MEAN CORPUSCULAR VOLUME 97.6 fL (80-94); RED BLOOD CELL COUNT(AUTO) 2.96 MIL/uL (4.20-5.40); WHITE BLOOD COUNT (AUTO) 2.8 K/uL (4.8-10.8)
[2017-12-23 08:00] VITALS: BP 122/60
[2017-12-23 08:00] LABS: BASOPHILS % (AUTO) 2.2 % (0.0-2.0); EOSINOPHILS % (AUTO) 2.3 % (0.0-4.0); LYMPHOCYTES % (AUTO) 44.4 % (20.5-51.1); NEUTROPHILS % (AUTO) 38.1 % (42.2-75.2); PLATELET COUNT (AUTO) 115 K/uL (140-450); RED CELL DISTRIBUTION WIDTH 20.5 % (11.6-13.7)
[2017-12-23 08:29] LABS: T4 (THYROXINE) 8.7 ug/dL (4.5-12.0)
[2017-12-23 08:29] LABS: MAGNESIUM 1.6 mg/dL (1.8-2.4); PHOSPHORUS 3.7 mg/dL (2.5-4.9)
--- NOTE | 2017-12-23 09:00 | NUR ---
PATIENT IS SLEEPING. NO SIGNS OF DISTRESS ON ROOM AIR. WILL CONTINUE TO MONITOR
--- NOTE | 2017-12-23 10:34 | NUR ---
PATIENT HAS BEEN SCREENED AND CATEGORIZED HIGH NUTRITION RISK. PATIENT WILL BE SEEN WITHIN 1-2 DAYS OF ADMISSION. 12/23/17 12/24/[address]
[2017-12-23] MEDS: LACTULOSE 20 GM/30 ML UDC PO SCH ×2 (10:53→20:24)
[2017-12-23] MEDS: SENNA 8.6 MG TAB PO SCH ×3 (10:53→18:04)
[2017-12-23] MEDS: DORZOLAMIDE 2% OP 10 ML BTL BOTH EYES SCH ×2 (10:54→20:24)
[2017-12-23] MEDS: FERROUS SULFATE 300 MG/5 ML UDC GT SCH (10:54)
[2017-12-23] MEDS: BRIMONIDINE TARTRATE 0.2% OP 5 ML BTL BOTH EYES SCH ×2 (10:54→20:24)
[2017-12-23] MEDS: PANTOPRAZOLE 40 MG INJ VIAL IVP SCH ×2 (10:55→20:27)
--- NOTE | 2017-12-23 11:18 | NUR ---
GTUBE NEEDED TO BE IRRIGATED. CHECKED FOR PLACEMENT USING SWOOSH, CRUSHED MEDS AND ADMINISTERED THEM. FLUSHED THE TUBE. PATIENT TOLERATED WELL. IV IS CLEAN, DRY AND INTACT. WILL CONTINUE TO MONITOR
[2017-12-23 11:48] LABS: CHOL/HDL RATIO 2.5 (1-4.5)
[2017-12-23 12:00] VITALS: BP 101/54
[2017-12-23 13:41] LABS: ANION GAP 21.3 (8-16); CARBON DIOXIDE 17.6 mmol/L (21-32); CHLORIDE 104 mmol/L (98-107); CREATININE 1.9 mg/dL (0.6-1.3); POTASSIUM 3.9 mmol/L (3.5-5.1); SODIUM SERUM 139 mmol/L (136-145); UREA NITROGEN, BLOOD 56 mg/dL (7-18)
--- NOTE | 2017-12-23 13:41 | NUR ---
CHECKED FOR GTUBE PLACEMENT USING THE SWOOSH. CRUSHED MEDS. FLUSHED. PATIENT TOLERATED WELL. WILL CONTINUE TO MONITOR THE PATIENT.
[2017-12-23] MEDS ORDERED: MAG SULF 2000 MG/WATER PREMIX 50 ML IV SCH (14:00)
[2017-12-23 14:02] LABS: GLUCOSE 121 mg/dL (74-106)
[2017-12-23] MEDS ORDERED: diphenhydrAMINE 50 MG/ML VIAL ONE (14:05)
[2017-12-23] MEDS ORDERED: fentaNYL 0.05 MG/ML VIAL ONE (14:05)
[2017-12-23] MEDS ORDERED: MIDAZOLAM 2 MG/2 ML VIAL ONE (14:05)
--- NOTE | 2017-12-23 14:14 | NUR ---
GAVE REPORT TO OR NURSE. PATIENT IN STABLE CONDITION. WILL AWAIT HER ARRIVAL
--- NOTE | 2017-12-23 15:10 | NUR ---
PATIENT BACK FROM THE OR. PATIENTS VITALS ARE STABLE. B/P 116/60 HR 80 98% ON ROOM AIR, AND RR 16. WILL CONTINUE TO MONITOR THE PATIENT.
[2017-12-23 16:00] VITALS: BP 109/55
--- NOTE | 2017-12-23 16:51 | NUR ---
12/23/17 RD INITIAL ASSESSMENT COMPLETED PLEASE REFER TO NUTRITION ASSESSMENT UNDER CARE ACTIVITY FOR ESTIMATED NUTRITIONAL NEEDS. 1. RECOMMEND GLUCERNA @ GOAL RATE 45ML/H WITH 110ML H2O FLUSH Q4H. INTIATE AT 20ML/H AND INCREASE BY 20ML QH. THIS WILL PROVIDE 1296 KCAL, 81 GM PRO, AND [address] TO FOLLOW-UP 2-3 DAYS, HIGH RISK SHANT HUNTER RD
--- NOTE | 2017-12-23 18:05 | NUR ---
ADMINISTERED MEDS. TOLD DR PATIENT IS HAVING LOOSE STOOLS AND IF HE CAN DISCONTINUE THE SENNA. DR SAID IF HE FEELS THE NEED TO DISCONTINUE HE WILL DC IT. HE DID NOT DC IT SO I ADMINISTERED THE MEDS. HE SAID DR WASHINGTON HAD ORDERED THE MEDS. PATIENT TOLERATED WELL. BOWEL MOVEMENTS ARE MUCOID LIKE STOOLS, BROWN. WILL CONTINUE TO MONITOR THE PATIENT.
--- NOTE | 2017-12-23 18:53 | NUR ---
STARTED GLUCERNIA 1.2 AT 20ML/HR WITH H20 FLUSH OF 110 Q4HRS. PATIENTS GTUBE PLACEMENT CHECKED WITH SWOOSH. NO RESIDUAL. WILL ENDORSE TO MATERIAL HANDLING WAREHOUSE SUPERVISOR NURSE TO INCREASE TO 45ML/HR IN AN HOUR. WILL CONTINUE TO MONITOR PATIENT.
--- NOTE | 2017-12-23 19:05 | NUR ---
GAVE BEDSIDE REPORT TO MARKETING DIRECTOR NURSE. PATIENT ENDORSED IN STABLE CONDITION.
--- NOTE | 2017-12-23 19:10 | NUR ---
RECEIVED PT ON BED AAOX4, VITAL SIGNS STABLE, DENIES ANY PAIN, NO SOB NOTED, G-TUBE FEEDING ON-GOING AT 20ML/H WITH GOAL RATE OF 45ML/H, HOB ELEVATED AT ALL TIMES, PLAN OF CARE DISCUSSED, SAFETY MEASURES IN PLACE, SIDE RAILS UP AND CALL LIGHT WITHIN REACH, MAINTAIN ON CONTACT ISOLATION, WILL REPOSITION Q2H AND OFFLOAD PRESSURE AREAS.
[2017-12-23 20:00] VITALS: BP 116/54
[2017-12-23] MEDS: LATANOPROST 0.005% OP 2.5 ML BTL BOTH EYES SCH (20:25)
[2017-12-23] MEDS: NICOTINE TRANSD SYS 14 MG/24 HR PATCH TD SCH (20:34)
[2017-12-23] MEDS: ZOLPIDEM 5 MG TAB PO PRN (20:40)
--- NOTE | 2017-12-23 23:00 | NUR ---
10ML RESIDUAL NOTED, G-TUBE FEEDING RATE INCREASED TO 30ML/H, MONITORED CLOSELY.
[2017-12-24] VITALS: BP 122/61
--- NOTE | 2017-12-24 03:25 | NUR ---
PT HAD MODERATE LOOSE BROWN BM, NO BLOOD NOTED, INCONTINENT OF URINE, PERINEAL CARE DONE, REPOSITIONED AND OFFLOAD PRESSURE AREAS, VITAL SIGN S STABLE, DENIES PAIN, NO SOB NOTED, IVF INFUSING WELL, TOLERATING G-TUBE FEEDING, MONITORED CLOSELY.
[2017-12-24 04:00] VITALS: BP 124/50
[2017-12-24] MEDS: DEXT 5% / NACL 0.45% 1,000 ML IV SCH (05:03)
--- NOTE | 2017-12-24 05:10 | NUR ---
20ML RESIDUAL NOTED, FEEDING RATE INCREASED TO GOAL RATE OF 45ML/H WITH FREE WATER FLUSH OF 110ML Q4H ORDERED, MAINTAIN HOB ELEVATED AT ALL TIMES, PT HAD 3 BM WITH NO BLOOD NOTED, IVF INFUSING WELL, NO SIGNS OF DISTRESS, MONITORED CLOSELY.
--- NOTE | 2017-12-24 07:17 | NUR ---
PT AWAKE, NO SIGNS OF DISTRESS, REPORT GIVEN TO RN PENNY FOR CONTINUITY OF CARE.
--- NOTE | 2017-12-24 07:20 | NUR ---
RECEIVED BEDSIDE REPORT FROM DIRECTOR MACHINE NURSE. PATIENT IS AWAKE, ALERT AND ORIENTEDX4. NO SIGNS OF DISTRESS ON ROOM AIR. DR YOUNGBLOOD IN TO SEE THE PATIENT. PATIENT IS BEDBOUND. SHE HAS L BKA. SKIN IS INTACT. GTUBE IN PLACE. CLEAN, DRY AND INTACT. SHE HAD 3 NON BLOODY STOOLS LAST NIGHT. TELE MONITOR IN PLACE. FALL PRECAUTIONS IN PLACE. PATIENT REFUSED YELLOW SOCKS, SHE PREFERS HER OWN SOCKS. IV ON R AC 22G INFUSING D5 1/2NS AT 80. IV IS CLEAN, DRY AND INTACT. BED IN LOW POSITION. CALL LIGHT WITHIN REACH. WILL CONTINUE TO MONITOR THE PATIENT.
[2017-12-24 07:46] LABS: HEMATOCRIT 28.4 % (36-48); HEMOGLOBIN 9.6 g/dL (12.0-16.0); MEAN CORPUSCULAR HEMOGLOBIN 33 pg (27-31); MEAN CORPUSCULAR HGB CONC 34 g/dL (33-37); MEAN CORPUSCULAR VOLUME 97.3 fL (80-94); RED BLOOD CELL COUNT(AUTO) 2.92 MIL/uL (4.20-5.40); RED CELL DISTRIBUTION WIDTH 19.8 % (11.6-13.7); WHITE BLOOD COUNT (AUTO) 2.8 K/uL (4.8-10.8)
[2017-12-24 07:47] LABS: BASOPHILS % (AUTO) 1.1 % (0.0-2.0); EOSINOPHILS % (AUTO) 2.8 % (0.0-4.0); MONOCYTES % (AUTO) 16.3 % (1.7-9.3); NEUTROPHILS % (AUTO) 44.8 % (42.2-75.2); PLATELET COUNT (AUTO) 118 K/uL (140-450)
[2017-12-24 07:54] LABS: ANION GAP 12.7 (8-16); CARBON DIOXIDE 20.9 mmol/L (21-32); CHLORIDE 104 mmol/L (98-107); CREATININE 1.6 mg/dL (0.6-1.3); GLUCOSE 126 mg/dL (74-106); POTASSIUM 4.6 mmol/L (3.5-5.1); SODIUM SERUM 133 mmol/L (136-145)
[2017-12-24 08:00] VITALS: BP 128/57
[2017-12-24 08:00] LABS: MAGNESIUM 2.2 mg/dL (1.8-2.4); PHOSPHORUS 3.7 mg/dL (2.5-4.9)
[2017-12-24 08:05] LABS: UREA NITROGEN, BLOOD 43 mg/dL (7-18)
[2017-12-24] MEDS: SENNA 8.6 MG TAB PO SCH ×3 (09:00→16:51)
[2017-12-24] MEDS: LACTULOSE 20 GM/30 ML UDC PO SCH (09:00)
[2017-12-24] MEDS: PANTOPRAZOLE 40 MG INJ VIAL IVP SCH (09:44)
[2017-12-24] MEDS: LACTOBACILLUS RHAMNOSUS GG 1 EACH CAP PO SCH (09:44)
[2017-12-24] MEDS: FERROUS SULFATE 300 MG/5 ML UDC GT SCH (09:44)
[2017-12-24] MEDS: BRIMONIDINE TARTRATE 0.2% OP 5 ML BTL BOTH EYES SCH ×2 (09:45→21:19)
[2017-12-24] MEDS: DORZOLAMIDE 2% OP 10 ML BTL BOTH EYES SCH ×2 (09:45→21:19)
--- NOTE | 2017-12-24 09:58 | NUR ---
ADMINISTERED MEDS. PATIENT REFUSED LAXATIVES. EXPLAINED THE IMPORTANCE BUT PATIENT HAS BEEN HAVING LOOSE STOOLS. WILL CONTINUE TO MONITOR THE PATIENT.
[2017-12-24] MEDS ORDERED: Z-GUARD PASTE TP PRN (10:25)
--- NOTE | 2017-12-24 10:28 | NUR ---
PATIENT IS SLEEPING. NO SIGNS OF DISTRESS ON ROOM AIR. WILL CONTINUE TO MONITOR THE PATIENT.
[2017-12-24] MEDS ORDERED: NACL 0.9% 1,000 ML IV SCH (11:20)
--- NOTE | 2017-12-24 11:50 | NUR ---
PATIENT IS SLEEPING BUT EASILY AROUSABLE. ADMINSTERED IVF, IV IS CLEAN, DRY AND INTACT. PATIENT TOLERATED WELL. DR YOUNGBLOOD ORDERED [facility] DIET, REQUESTED PUREED D/T PATIENT HAVING NO TEETH. WILL CONTINUE TO MONITOR PATIENT. BED IN LOW POSITION. CALL LIGHT WITHIN REACH.
[2017-12-24 12:00] VITALS: BP 97/49
--- NOTE | 2017-12-24 12:31 | NUR ---
PATIENT IS AWAKE ATTEMPING TO EAT LUNCH. PASTORAL COUNSELOR TO FEED PATIENT. WILL CONTINUE TO MONITOR THE PATIENT.
--- NOTE | 2017-12-24 14:34 | NUR ---
PATIENT SITTING IN BED WATCHING TV. NO COMPLAINTS AT THIS TIME. SHE JUST WANTED ME TO PUT THE HOB DOWN A LITTLE. BED IN LOW POSITION. WILL CONTINUE TO MONITOR THE PATIENT.
[2017-12-24 16:00] VITALS: BP 105/50
--- NOTE | 2017-12-24 16:44 | NUR ---
Interventionist Notes Late Entry: I meet with patient during a screen, to discuss, confirm and asses patient's needed resources and services upon discharge. Patient was alert and awake, stated that she is been placed at [facility]. and would like to go back to facility after his discharge. Per patient she do not have an advance directives and was not interested on getting all forms and information provided by these press writer. Per patient she has health care provider at facility Dr. Suarez. Patient stated that she has no issues getting or taking medications and has a walker and a wheelchair as her special equipment. Patient thanked me for my assistance and stated not having any questions at the time. Interventionist and Licensed Massage Practitioner will follow up as needed.
--- NOTE | 2017-12-24 16:54 | NUR ---
Petroleum Geology Faculty Member Notes: I called [facility] at to discuss and gather patient's information about Patient. Per Hillary RN Patient is on a skilled 7 days bed hold and is able to returned to facility when patient is ready and clear for Discharge.
--- NOTE | 2017-12-24 16:54 | NUR ---
CLEANED PATIENT, LOOSE STOOL, ADMINISTER Z GUARD WITH CUSTOMER ORDERS CLERK. PATIENT TOLERATED TURNS WELL. ADMINISTERED ANTIBIOTICS. IV IS CLEAN, DRY AND INTACT. PATIENT IS SLEEPING, NO SIGNS OF DISTRESS ON ROOM AIR. WILL CONTINUE TO MONITOR THE PATIENT.
--- NOTE | 2017-12-24 17:44 | NUR ---
PATIENT IS WATCHING TV WITH NIECE AT BEDSIDE. NO SIGNS OF DISTRESS. WILL CONTINUE TO MONITOR THE PATIENT. BED IN LOW POSITION. CALL LIGHT WITHIN REACH.
--- NOTE | 2017-12-24 19:00 | NUR ---
GAVE BEDSIDE REPORT TO DROP SHIPMENT CLERK NURSE. PATIENT ENDORSED IN STABLE CONDITION
--- NOTE | 2017-12-24 19:10 | NUR ---
RECEIVED PT IN STABLE CONDITION FROM AM NURSE.AWAKE, ALERT AND ORIENTED X4. WITH NO ACUTE DISTRESS NOTED. ON TELE MONITOR. BEDREST . WITH LT BKA . ON CCHO 60 GM , PUREE DIET AND AT THE SAME TIME GETTING GT FEEDING. TOLERATING WELL. HAS IVF INFUSING WELL ON THE RT AC#20. CLEAR AND PATENT. BED ON LOW POSITION, FREQUENT ROUNDS NEEDED. CALL LIGHT PLACED WITHIN EASY REACH. 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 WILL CONTINUE TO MONITOR.
[2017-12-24 20:00] VITALS: BP 108/49
[2017-12-24] MEDS: LATANOPROST 0.005% OP 2.5 ML BTL BOTH EYES SCH (21:18)
--- NOTE | 2017-12-24 21:20 | NUR ---
ALL SCHEDULED EYE DROPS GIVEN. TOLERATED WELL. NO C/O ANY PAIN NOTED.
[2017-12-24] MEDS: NICOTINE TRANSD SYS 14 MG/24 HR PATCH TD SCH (21:25)
--- NOTE | 2017-12-24 22:00 | NUR ---
MADE ROUNDS. PT IS ASLEEP. NO S/S/ OF ANY DISCOMFORT NOTED.
[2017-12-24] MEDS: ZOLPIDEM 5 MG TAB PO PRN (23:29)
[2017-12-25] VITALS: BP 125/54
--- NOTE | 2017-12-25 01:30 | NUR ---
MADE ROUNDS. PT IS ASLEEP. NO S/S OF ANY DISCOMFORT NOTED. WILL CONTINUE TO MONITOR.
--- NOTE | 2017-12-25 03:00 | NUR ---
NEW BOTTLE OF GT FEEDING GLUCERNA 1.2 SINDI CHANGED. PT TOLERATING FEEDING WELL.
[2017-12-25 04:35] VITALS: BP 120/51
--- NOTE | 2017-12-25 05:00 | NUR ---
AWAKE. NO C/O OF ANY DISCOMFORT NOTED. WILL CONTINUE TO MONITOR.
[2017-12-25 06:33] LABS: ANION GAP 12.3 (8-16); CARBON DIOXIDE 20.9 mmol/L (21-32); CHLORIDE 106 mmol/L (98-107); CREATININE 1.6 mg/dL (0.6-1.3); GLUCOSE 99 mg/dL (74-106); POTASSIUM 4.2 mmol/L (3.5-5.1); SODIUM SERUM 135 mmol/L (136-145); UREA NITROGEN, BLOOD 42 mg/dL (7-18)
[2017-12-25 06:39] LABS: MAGNESIUM 1.5 mg/dL (1.8-2.4); PHOSPHORUS 4.2 mg/dL (2.5-4.9)
--- NOTE | 2017-12-25 07:33 | NUR ---
ENDORSED PT IN STABLE CONDITION TO AM NURSE.
--- NOTE | 2017-12-25 07:34 | NUR ---
RECEIVED REPORT FROM THE MOBILE HEALTH VEHICLE OPERATOR NURSE AT BEDSIDE FOR CONTINUITY OF CARE. PT IS AWAKE AND ORIENTED. INTRODUCED MYSELF AND UPDATED THE BOARD. PT IS ON MS. BEDREST. SKIN- INCONTINENT DERMATITIS ON SACRAL AND KOFI AREA. GTUBE IN PLACE. GLUCERNA 45CC/HR W/ 110ML H2O FLUSH Q 4 HR. PER PT, LBM WAS THIS MORNING. NO BLOOD IN STOOL. IV ON R AC 20G NS AT 40ML/HR. AFTER THIS BAG, PT IS TO BE HEP LOCKED. V/S WITHIN NORMAL RANGE. DENIES PAIN. WILL CONTINUE TO MONITOR PT.
[2017-12-25 08:00] VITALS: BP 140/55
[2017-12-25] MEDS: FERROUS SULFATE 300 MG/5 ML UDC GT SCH (08:34)
[2017-12-25] MEDS: BRIMONIDINE TARTRATE 0.2% OP 5 ML BTL BOTH EYES SCH ×2 (08:34→20:55)
[2017-12-25] MEDS: LACTULOSE 20 GM/30 ML UDC PO SCH (08:34)
[2017-12-25] MEDS: DORZOLAMIDE 2% OP 10 ML BTL BOTH EYES SCH ×2 (08:34→20:55)
[2017-12-25] MEDS: LACTOBACILLUS RHAMNOSUS GG 1 EACH CAP PO SCH (08:35)
[2017-12-25 08:39] LABS: HEMATOCRIT 25.1 % (36-48); HEMOGLOBIN 8.3 g/dL (12.0-16.0); MEAN CORPUSCULAR VOLUME 97.2 fL (80-94); RED BLOOD CELL COUNT(AUTO) 2.58 MIL/uL (4.20-5.40); WHITE BLOOD COUNT (AUTO) 3.2 K/uL (4.8-10.8)
[2017-12-25 08:40] LABS: MEAN CORPUSCULAR HEMOGLOBIN 32 pg (27-31); MEAN CORPUSCULAR HGB CONC 33 g/dL (33-37); PLATELET COUNT (AUTO) 115 K/uL (140-450); RED CELL DISTRIBUTION WIDTH 19.9 % (11.6-13.7)
--- NOTE | 2017-12-25 08:42 | NUR ---
ADMINISTERED MORNING MEDS. PT'S GTUBE WAS DISCONNECTED AND WAS CLOGGED. FLUSHED THE GTUBE. CHECKED FOR PLACEMENT, NO RESIDUAL, AND PATENCY. IT IS WORKING FINE. MEDS WERE GIVEN VIA GTUBE. FEEDING IS INFUSING ONCE AGAIN. IV FLUID AT 40ML STILL INFUSING. AFTER THIS BAG, SL. PT TOLERATED WELL. WILL CONTINUE TO MONITOR PT.
[2017-12-25] MEDS ORDERED: MAG SULF 2000 MG/WATER PREMIX 50 ML IV ONE (08:50)
[2017-12-25] MEDS ORDERED: PANTOPRAZOLE 40 MG TABEC PO SCH (09:00)
[2017-12-25 09:05] LABS: EOSINOPHILS % (MANUAL) 2 % (0-4); LYMPHOCYTES % (MANUAL) 39 % (20-46); MONOCYTES % (MANUAL) 19 % (5-12)
[2017-12-25] MEDS: MAGNESIUM SULFATE 1GM in DEXTROSE 5% 100 ML PREMIX IV SCH ×2 (10:06→11:18)
--- NOTE | 2017-12-25 10:20 | NUR ---
ADMINISTERED MAG RIDER X2 BAGS. PT TOLERATING WELL. WILL CONTINUE TO MONITOR PT.
[2017-12-25 12:00] VITALS: BP 148/57
--- NOTE | 2017-12-25 13:45 | NUR ---
PT WATCHING TV. IV PUMP BEEPING. D/C'D FLUIDS ORDERED. NO SIGNS OF DISTRESS. WILL CONTINUE TO MONITOR PT.
[2017-12-25 16:00] VITALS: BP 119/55
--- NOTE | 2017-12-25 16:10 | NUR ---
PT RESTING COMFORTABLY. NO SIGNS OF DISTRESS. WILL CONTINUE TO MONITOR PT.
--- NOTE | 2017-12-25 18:22 | NUR ---
PT IS EATING DINNER, WATCHING TV. NO SIGNS OF DISTRESS. WILL CONTINUE TO MONITOR PT.
--- NOTE | 2017-12-25 19:18 | NUR ---
ENDORSED PT TO THE STOREKEEPER HELPER NURSE AT BEDSIDE FOR CONTINUITY OF CARE. PT IS IN STABLE CONDITION.
--- NOTE | 2017-12-25 19:19 | NUR ---
RECEIVED PT IN STABLE CONDITION FORM AM NURSE. AWAKE,ALERT AND ORIENTED X4. MED SURG PT. BEDREST . WITH LT BKA . GENERAL WEAKNESS. WITH HL ON THE RT AC #20. CLEAR AND PATENT. HAS GT FEEDING ,TOLERATING WELL. ONLY 10 ML RESIDUAL NOTED. NO C/O ANY DISCOMFORT NOR PAIN NOTED. BED ON LOW POSITION,FREQUENT ROUNDS NEEDED. CALL LIGHT PLACED WITHIN EASY REACH. ON CONTACT ISOLATION DUE TO HX: MRSA SPUTUM. PRECAUTIONS ENFORCED. WILL CONTINUE TO MONITOR.
[2017-12-25] MEDS: LATANOPROST 0.005% OP 2.5 ML BTL BOTH EYES SCH (20:54)
[2017-12-25] MEDS: NICOTINE TRANSD SYS 14 MG/24 HR PATCH TD SCH (20:55)
--- NOTE | 2017-12-25 20:55 | NUR ---
ALL NIGHT MEDS , EYEDROPS GIVEN TO PT. TOLERATED WELL. PT NO C/O OF ANY DISCOMFORT NOTED.
--- NOTE | 2017-12-25 22:30 | NUR ---
PT AWAKE. NO C/O ANY PAIN NOR DISCOMFORT . WILL CONTINUE TO MONITOR.
[2017-12-26 00:45] VITALS: BP 122/54
[2017-12-26] MEDS: ZOLPIDEM 5 MG TAB PO PRN (00:53)
--- NOTE | 2017-12-26 00:53 | NUR ---
PT STILL AWAKE. C/O INSOMNIA. SHE SAID SHE WANTS AMBIEN . GIVEN ORDERED PRN. WILL CONTINUE TO MONITOR.
--- NOTE | 2017-12-26 02:30 | NUR ---
MADE ROUNDS. PT SLEEPING WITH NO S/S OF ANY DISTRESS NOTED.
--- NOTE | 2017-12-26 04:30 | NUR ---
PT AWAKE. WITH OCCASIONAL NON PRODUCTIVE COUGH. NO DISTRESS NOTED.
[2017-12-26 06:05] LABS: BASOPHILS % (AUTO) 0.1 % (0.0-2.0); EOSINOPHILS # (AUTO) 0.1 K/uL (0-0.4); EOSINOPHILS % (AUTO) 3.7 % (0.0-4.0); HEMATOCRIT 23.3 % (36-48); HEMOGLOBIN 7.8 g/dL (12.0-16.0); LYMPHOCYTES # (AUTO) 1.3 K/uL (2.5-16.5); LYMPHOCYTES % (AUTO) 45.1 % (20.5-51.1); MEAN CORPUSCULAR HEMOGLOBIN 33 pg (27-31); MEAN CORPUSCULAR HGB CONC 33 g/dL (33-37); MEAN CORPUSCULAR VOLUME 97.8 fL (80-94); MONOCYTES # (AUTO) 0.5 K/uL (0.8-1.0); MONOCYTES % (AUTO) 18.8 % (1.7-9.3); NEUTROPHILS # (AUTO) 0.9 K/uL (1.8-7.7); NEUTROPHILS % (AUTO) 32.3 % (42.2-75.2); PLATELET COUNT (AUTO) 95 K/uL (140-450); RED BLOOD CELL COUNT(AUTO) 2.39 MIL/uL (4.20-5.40); RED CELL DISTRIBUTION WIDTH 20.7 % (11.6-13.7); WHITE BLOOD COUNT (AUTO) 2.9 K/uL (4.8-10.8)
--- NOTE | 2017-12-26 06:30 | NUR ---
NEW BAG OF GLUCERNA 1.2 SINDI STARTED WITH NEW TUBINGS AND FEEDING MACHINE. PT TOLERATING FEEDING WITH NO RESIDUAL NOTED.
[2017-12-26 06:34] LABS: ANION GAP 5.9 (8-16); CARBON DIOXIDE 22.2 mmol/L (21-32); CHLORIDE 102 mmol/L (98-107); CREATININE 1.5 mg/dL (0.6-1.3); GLUCOSE 108 mg/dL (74-106); POTASSIUM 4.1 mmol/L (3.5-5.1); SODIUM SERUM 126 mmol/L (136-145); UREA NITROGEN, BLOOD 40 mg/dL (7-18)
[2017-12-26 06:39] LABS: MAGNESIUM 1.9 mg/dL (1.8-2.4); PHOSPHORUS 4.5 mg/dL (2.5-4.9)
[2017-12-26] MEDS ORDERED: LACT10SO11 PO (06:45)
[2017-12-26] MEDS ORDERED: PSYL0.5227 PO (06:45)
[2017-12-26] MEDS ORDERED: FAMO-90 PO (06:46)
--- NOTE | 2017-12-26 07:12 | NUR ---
ENDORSED PT IN STABLE CONDITION TO AM NURSE.
--- NOTE | 2017-12-26 07:12 | NUR ---
RECEIVED BEDSIDE REPORT FROM MINER PLACER NURSE VASQUEZ, PT STABLE IN BED ABLE TO MAKE NEEDS KNOWN, IV SL IN R AC 20 G, PATENT AND DRESSING INTACT. TUBE FEEDING AT 45 ML/HR, G-TUBE DRESSING INTACT. V/S TAKEN ALL WITHIN PTS BASELINE. EXPLAINED PLAN OF CARE, CALL LIGHT WITHIN REACH, WILL CONTINUE TO MONITOR.
[2017-12-26] MEDS ORDERED: SODIUM CHLORIDE 1 GM TAB PO SCH (08:00)
[2017-12-26] MEDS: BRIMONIDINE TARTRATE 0.2% OP 5 ML BTL BOTH EYES SCH ×2 (08:41→21:07)
[2017-12-26] MEDS: DORZOLAMIDE 2% OP 10 ML BTL BOTH EYES SCH ×2 (08:41→21:08)
[2017-12-26] MEDS: FERROUS SULFATE 300 MG/5 ML UDC GT SCH (08:41)
[2017-12-26] MEDS: PANTOPRAZOLE 40 MG INJ VIAL IVP SCH (08:42)
[2017-12-26] MEDS: LACTULOSE 20 GM/30 ML UDC PO SCH (08:42)
--- NOTE | 2017-12-26 09:00 | NUR ---
CONSULTED WILL DR YOUNGBLOOD REGARDING DIET. DR YOUNGBLOOD WILL PUT IN ORDERS FOR DIET. WILL FOLLOW WITH PAMELLA RICHARDS.
--- NOTE | 2017-12-26 09:44 | NUR ---
CALLED [facility] ASKING IF PT CAN HAVE A LATE BREAKFAST TRAY. DIETARY STATED IT WAS TOO LATE BUT THEY WILL BRING LUNCH TRAY. PT SAID "OKAY".
--- NOTE | 2017-12-26 10:50 | NUR ---
PT IN BED NO SIGNS OF DISTRESS, WILL CONTINUE TO MONITOR.
[2017-12-26 11:21] LABS: ANION GAP 9.6 (8-16); CARBON DIOXIDE 23.3 mmol/L (21-32); CHLORIDE 103 mmol/L (98-107); CREATININE 1.5 mg/dL (0.6-1.3); GLUCOSE 130 mg/dL (74-106); POTASSIUM 3.9 mmol/L (3.5-5.1); SODIUM SERUM 132 mmol/L (136-145); UREA NITROGEN, BLOOD 39 mg/dL (7-18)
[2017-12-26] MEDS: NACL 0.9% 1,000 ML IV SCH (12:03)
--- NOTE | 2017-12-26 12:14 | NUR ---
EXPLAINED TO PT THAT DR ORDERED STOOL SAMPLE FOR OCCULT BLOOD. PT STATED SHE DOES NOT HAVE TO GO YET. CHECKED PT, NO BM SEEN, WILL COLLECT SAMPLE AND SEND TO LAB ONCE PT HAS BM.
--- NOTE | 2017-12-26 14:15 | NUR ---
PT RESTING IN BED, RESIDUALS 5 ML OF FORMULA. CALL LIGHT WITH IN REACH, WILL CONTINUE TO MONITOR.
--- NOTE | 2017-12-26 14:33 | NUR ---
12/26/17 RD FOLLOW UP COMPLETED PLEASE REFER TO NUTRITION PROGRESS NOTE UNDER CARE ACTIVITY FOR ESTIMATED NUTRITIONAL NEEDS. 1. CONTINUE PUREE CCHO 60GM DIET TOLERATED 2. CONTINUE GLUCERNA 1.2 @45ML/H WITH 110ML H2O FLUSH Q4H TOLERATED. THIS WILL PROVIDE 1296 KCAL, 81 GM PRO, AND 1309 ML FLUIDS. 3. ENCOURAGE INCREASED PO INTAKE 4. RD TO FOLLOW-UP 2-3 DAYS, HIGH RISK SHANT HUNTER RD
--- NOTE | 2017-12-26 16:00 | NUR ---
PT IV SHOWING HIGH PRESSURE, FLUSHED WITH NS 10 ML, IV INFUSING AT 40 ML/HR.
--- NOTE | 2017-12-26 19:11 | NUR ---
ENDORSED PT TO REFRIGERATING ENGINEER NURSE TIFFANY, PT STABLE.
--- NOTE | 2017-12-26 19:12 | NUR ---
PATIENT REPORT RECEIVED AT BEDSIDE FROM MORNING NURSE. PATIENT IS RESTING COMFORTABLY IN BED. NO SIGNS AND SYMPTOMS OF DISTRESS NOTED. NO C/O PAIN AT THIS TIME. PATIENT IS AOX4. IV SITE NOTED ON RIGHT AC, IVF INFUSING WELL. GTUBE NOTED WITH TUBE FEEDING CONTINUOUSLY RUNNING AT 45ML/HR. SAFETY AND CONTACT PRECAUTIONS IN PLACE. WILL CONTINUE TO MONITOR
[2017-12-26 19:56] VITALS: BP 100/58
[2017-12-26 20:04] LABS: ANION GAP 12.8 (8-16); CARBON DIOXIDE 22.8 mmol/L (21-32); CHLORIDE 106 mmol/L (98-107); CREATININE 1.6 mg/dL (0.6-1.3); GLUCOSE 118 mg/dL (74-106); POTASSIUM 4.6 mmol/L (3.5-5.1); SODIUM SERUM 137 mmol/L (136-145); UREA NITROGEN, BLOOD 46 mg/dL (7-18)
[2017-12-26] MEDS: NICOTINE TRANSD SYS 14 MG/24 HR PATCH TD SCH (21:07)
[2017-12-26] MEDS: LATANOPROST 0.005% OP 2.5 ML BTL BOTH EYES SCH (21:08)
--- NOTE | 2017-12-26 21:22 | NUR ---
MEDICATION EDUCATION GIVEN. PATIENT VERBALIZED UNDERSTANDING. MEDICATION ADMINISTERED ORDERED. PATIENT TOLERATED WELL. WILL CONTINUE TO MONITOR
--- NOTE | 2017-12-26 21:45 | NUR ---
PATIENT HAD A BOWEL MOVEMENT. PERICARE DONE. CHUCKS CHANGED. PATIENT REPOSITIONED FOR COMFORT. PATIENT TOLERATED WELL. WILL CONTINUE TO MONITOR
--- NOTE | 2017-12-26 23:43 | NUR ---
CHECKED ON PATIENT. PATIENT IS ASLEEP. NO SIGNS AND SYMPTOMS OF DISTRESS NOTED. BREATHING EVEN AND UNLABORED. WILL CONTINUE TO MONITOR
--- NOTE | 2017-12-27 | NUR ---
NOTIFIED RT ILAN ABOUT THE SCHEDULED BREATHING TREATMENTS. SHE WILL FOLLOW UP
--- NOTE | 2017-12-27 02:30 | NUR ---
PATIENT STATED THAT SHE CAN'T SLEEP AND THAT SHE IS FEELING ANXIOUS. WILL ADMINISTER MEDS ORDERED.
--- NOTE | 2017-12-27 03:40 | NUR ---
CHECKED ON PATIENT. PATIENT IS ASLEEP. NO SIGNS AND SYMPTOMS OF DISTRESS NOTED. BREATHING EVEN AND UNLABORED. WILL CONTINUE TO MONITOR
[2017-12-27 04:00] VITALS: BP 119/55
--- NOTE | 2017-12-27 05:17 | NUR ---
NEW BAG OF GLUCERNA 1.2 STARTED. NO RESIDUAL NOTED IN G TUBE. TUBE FEEDING TO RUN AT 45ML/HR
--- NOTE | 2017-12-27 07:20 | NUR ---
PATIENT REPORT GIVEN TO MORNING NURSE AT BEDSIDE FOR CONTINUITY OF CARE. PATIENT IS IN STABLE CONDITION
--- NOTE | 2017-12-27 07:21 | NUR ---
RECEIVED REPORT FROM UTILITY WORKER ROLLER SHOP NURSE TIFFANY AT BEDSIDE FOR CONTINUITY OF CARE. PT IS AWAKE AND ORIENTED X4. INTRODUCED SELF AND UPDATED BOARD. NO SIGNS OF DISTRESS. NO SOB. NO COUGH. O2 SAT 100% ON RA. PT DENIES PAIN. WITH L BKA. PT STATED PROSTHETIC LEG WAS LEFT AT HOME IN [place]. NO COMPLAINTS AT THIS TIME. CALL LIGHT WITHIN REACH. BED IN LOW POSITION. WILL CONTINUE TO MONITOR.
--- NOTE | 2017-12-27 07:55 | NUR ---
AWAKE AND ALERT RESPONSIVE NO SOB NOTED PATIENT WITH BREAKFAST TRAY AT THIS TIME INSPECTOR BALANCE BRIDGE TO ATTEMPT HHN THERAPY AT A LATER TIME
[2017-12-27 08:00] VITALS: BP 126/54
[2017-12-27 08:39] LABS: HEMATOCRIT 24.1 % (36-48); HEMOGLOBIN 8.2 g/dL (12.0-16.0); MEAN CORPUSCULAR HEMOGLOBIN 33 pg (27-31); MEAN CORPUSCULAR HGB CONC 34 g/dL (33-37); MEAN CORPUSCULAR VOLUME 98.6 fL (80-94); PLATELET COUNT (AUTO) 104 K/uL (140-450); RED BLOOD CELL COUNT(AUTO) 2.45 MIL/uL (4.20-5.40); WHITE BLOOD COUNT (AUTO) 2.8 K/uL (4.8-10.8)
[2017-12-27 08:59] LABS: ANION GAP 12.8 (8-16); CARBON DIOXIDE 21.6 mmol/L (21-32); CHLORIDE 107 mmol/L (98-107); CREATININE 1.5 mg/dL (0.6-1.3); GLUCOSE 104 mg/dL (74-106); POTASSIUM 4.4 mmol/L (3.5-5.1); SODIUM SERUM 137 mmol/L (136-145); UREA NITROGEN, BLOOD 43 mg/dL (7-18)
[2017-12-27] MEDS: LACTULOSE 20 GM/30 ML UDC PO SCH (09:00)
[2017-12-27 09:11] LABS: MAGNESIUM 1.6 mg/dL (1.8-2.4); PHOSPHORUS 4.4 mg/dL (2.5-4.9)
[2017-12-27] MEDS: BRIMONIDINE TARTRATE 0.2% OP 5 ML BTL BOTH EYES SCH (11:03)
[2017-12-27] MEDS: PANTOPRAZOLE 40 MG INJ VIAL IVP SCH (11:04)
[2017-12-27] MEDS: FERROUS SULFATE 300 MG/5 ML UDC GT SCH (11:04)
[2017-12-27] MEDS: DORZOLAMIDE 2% OP 10 ML BTL BOTH EYES SCH (11:04)
[2017-12-27] MEDS: NACL 0.9% 1,000 ML IV SCH (11:40)
[2017-12-27] MEDS ORDERED: MAG SULF 2000 MG/WATER PREMIX 50 ML IV ONE (12:45)
[2017-12-27 13:30] LABS: EOSINOPHILS % (MANUAL) 4 % (0-4); LYMPHOCYTES % (MANUAL) 43 % (20-46); MONOCYTES % (MANUAL) 25 % (5-12)
[2017-12-27 16:00] VITALS: BP 105/46
--- NOTE | 2017-12-27 16:20 | NUR ---
CALLED [facility] [phone] TO GIVE REPORT. NO ANSWER. WILL TRY AND CALL BACK LATER
--- NOTE | 2017-12-27 16:45 | NUR ---
CALLED [facility]. NO ANSWER FOR REPORT.
--- NOTE | 2017-12-27 17:00 | NUR ---
CALLED [facility] AND GAVE REPORT TO AYLIN SALEEM. 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
--- NOTE | 2017-12-27 17:10 | NUR ---
PT D/C TO GO TO [facility]. GAVE D/C FORMS, INSTRUCTIONS, LABS, RX, AND FOLLOW UP APPOINTMENT. PT VERBALIZED UNDERSTANDING AND SIGNED FORMS. D/C IV TO R AC 20G. IV CATHETER TIP INTACT. APPLIED DRESSING AND PRESSURE TO SITE. NO BLEEDING NOTED. REMOVED ID BAND. CLAMPED G-TUBE AND STOPPED FEEDING. PT CHANGED IN ORANGE GOWN. LEFT WITH ALL PERSONAL BELONGINGS. PER PT LEFT PROSTHETIC LEG WAS LEFT AT HOME IN [place]. GAVE REPORT TO TRANSPORTERS. PT LEFT UNIT VIA GURNEY. LEFT IN STABLE CONDITION.
== END 2017-12-27 17:10 | DRG 871 ==
LOC: MED 09:42 → MTU 12:03
PROVIDERS: ADMIT General Practice; ATTEND General Practice
PROC: 0DJ08ZZ Inspection of Upper Intestinal Tract, Via Natural or Artificial Opening Endoscopic (ICD-10-PCS; principal; 2017-12-23 14:15)
DX: A41.9 Sepsis, unspecified organism (principal); K57.31 Diverticulosis of large intestine without perforation or abscess with bleeding; N17.0 Acute kidney failure with tubular necrosis; E43 Unspecified severe protein-calorie malnutrition; E87.1 Hypo-osmolality and hyponatremia; Z68.1 Body mass index [BMI] 19.9 or less, adult; N39.0 Urinary tract infection, site not specified; D62 Acute posthemorrhagic anemia; D53.9 Nutritional anemia, unspecified; J44.9 Chronic obstructive pulmonary disease, unspecified; I10 Essential (primary) hypertension; M32.9 Systemic lupus erythematosus, unspecified; H40.9 Unspecified glaucoma; E83.42 Hypomagnesemia; E83.51 Hypocalcemia; E88.09 Other disorders of plasma-protein metabolism, not elsewhere classified; E11.9 Type 2 diabetes mellitus without complications; F17.200 Nicotine dependence, unspecified, uncomplicated; K29.70 Gastritis, unspecified, without bleeding; Z93.1 Gastrostomy status; Z79.899 Other long term (current) drug therapy; Z86.718 Personal history of other venous thrombosis and embolism
CPT/HCPCS: 36415; 71045; 76770; 80048; 80053; 81001; 82150; 82272; 82948; 83690; 83735; 83880; 83930; 84100; 84134; 84436; 84443; 85025; 85610; 85730; 86886; 86900; 86901; 87081; 87086; 93005; 94640; 96361; 96374; 96375; 99285; C1758; C9113; J0696; J1200; J2060; J2250; J2270; J3010; J3475; J3490; J7030; J7060; J7620; Q0092

== ENCOUNTER 2018-08-17 15:52 | Inpatient (IN) | payer OTHER, MEDICAID ==
[~2018-08-17] VITALS: Ht 167.6 cm; Wt 46.7 kg
[~2018-08-17 15:52] MED LIST changes: +FAMO-90 PO; -LACT10CA1 PO; +LACT10SO11 PO; -PIPE50SO5 IV; +PSYL0.5227 PO
--- NOTE | 2018-08-17 15:55 | NUR ---
PT BIBA BLS TO ER BED 10
[2018-08-17 15:57] VITALS: BP 135/68
--- NOTE | 2018-08-17 16:00 | NUR ---
PT IS A 83 Y/O FEMALE WHO PRESENTS TO THE ED C/O SOB. PER EMS PT WAS GIVEN A BREATHING TX WITH IMPROVEMENT. PT DENIES PAIN AT THIS TIME. LUNG SOUNDS CLEAR BL, 95% ON RA. PT DENIES CP, SOB, N/V/D. PT AWAKE AND ALERT, RR EVEN/UNLABORED, PT STATES THAT SHE NORMALLY DOES NOT WALK BUT USES WHEELCHAIR. ER MD DR. FINCH NOTIFIED. WILL CONTINUE TO MONITOR. HX ANEMIA, DM, COPD, GERD, GLAUCOMA Addendum: 08/17/18 at 1715 by [email or web address] PT IS A 83 Y/O FEMALE WHO PRESENTS TO THE ED C/O SOB. PER EMS PT WAS GIVEN A BREATHING TX WITH IMPROVEMENT. PT DENIES PAIN AT THIS TIME. LUNG SOUNDS CLEAR BL, 95% ON RA. PT DENIES CP, SOB, N/V/D. NOTED L BELOW THE KNEE AMPUTATION AND PROSTHETIC LEG, NOTED G-TUBE. PT AWAKE AND ALERT, RR EVEN/UNLABORED, PT STATES THAT SHE NORMALLY DOES NOT WALK BUT USES WHEELCHAIR. ER MD DR. FINCH NOTIFIED. WILL CONTINUE TO MONITOR. HX ANEMIA, DM, COPD, GERD, GLAUCOMA
--- NOTE | 2018-08-17 16:05 | NUR ---
PT HAS GERIATRIC SCORE OF 4, ER MD MADE AWARE.
--- NOTE | 2018-08-17 16:08 | NUR ---
RT AT BEDSIDE FOR BREATHING TX.
[2018-08-17] MEDS ORDERED: NACL 0.9% 1,000 ML IV ONE (16:11)
[2018-08-17] MEDS ORDERED: NACL 0.9% 1,000 ML IV SCH (16:11)
[2018-08-17] MEDS ORDERED: OMEP20TC10 PO (16:14)
[2018-08-17] MEDS ORDERED: ACET-9882 PO (16:14)
[2018-08-17] MEDS ORDERED: OLAN2.5T1 PO (16:14)
[2018-08-17] MEDS ORDERED: ACET-2619 PO (16:14)
[2018-08-17] MEDS ORDERED: ONDA4TAB PO (16:14)
[2018-08-17] MEDS ORDERED: DOCU-299 PO (16:14)
[2018-08-17] MEDS ORDERED: MEGE40TA4 PO (16:14)
[2018-08-17] MEDS ORDERED: HYDR-5122 PO (16:14)
[2018-08-17] MEDS ORDERED: ROB PO (16:14)
[2018-08-17] MEDS ORDERED: MELA3TAB PO (16:14)
[2018-08-17] MEDS ORDERED: methylPREDNISolone SS 125 MG/2 ML VIAL IVP ONE (16:15)
[2018-08-17] MEDS ORDERED: FAMOTIDINE 20 MG/2 ML VIAL IVP ONE (16:15)
[2018-08-17] MEDS ORDERED: ALBUTEROL SULFATE/IPRATROPIU 3 ML SOL IH ONE (16:15)
[2018-08-17] MEDS ORDERED: MAG SULF 2000 MG/WATER PREMIX 50 ML IV ONE (16:15)
--- NOTE | 2018-08-17 16:15 | NUR ---
PER RT, ATTEMPTED TO DRAW ABG. X2 UNSUCCESSFUL ATTEMPTS, ER MADE AWARE.
--- NOTE | 2018-08-17 16:30 | NUR ---
SKIN ASSESSED WITH LON SALEEM, SKIN IS INTACT NO PRESSURE SORES NOTED.
--- NOTE | 2018-08-17 16:38 | NUR ---
TWO ATTEMPTS FOR ABG WAS NOT ABLE TO OBTAIN MSShama LUGO DID NOT WANT RT TO TRY AGAIN NOTIFIED
[2018-08-17 17:05] LABS: BASOPHILS % (AUTO) 0.4 % (0.0-2.0); EOSINOPHILS % (AUTO) 0.7 % (0.0-4.0); HEMATOCRIT 29.4 % (36-48); HEMOGLOBIN 9.7 g/dL (12.0-16.0); LYMPHOCYTES # (AUTO) 1.6 K/uL (2.5-16.5); LYMPHOCYTES % (AUTO) 28.1 % (20.5-51.1); MEAN CORPUSCULAR HEMOGLOBIN 33 pg (27-31); MEAN CORPUSCULAR HGB CONC 33 g/dL (33-37); MEAN CORPUSCULAR VOLUME 98.5 fL (80-94); MONOCYTES # (AUTO) 1.1 K/uL (0.8-1.0); MONOCYTES % (AUTO) 20.6 % (1.7-9.3); NEUTROPHILS # (AUTO) 2.8 K/uL (1.8-7.7); NEUTROPHILS % (AUTO) 50.2 % (42.2-75.2); PLATELET COUNT (AUTO) 130 K/uL (140-450); RED BLOOD CELL COUNT(AUTO) 2.99 MIL/uL (4.20-5.40); RED CELL DISTRIBUTION WIDTH 17.4 % (11.6-13.7); WHITE BLOOD COUNT (AUTO) 5.6 K/uL (4.8-10.8)
--- NOTE | 2018-08-17 17:30 | NUR ---
PATIENT TAKEN TO CT WITH DANIELLE VIA MARGARETRMARIYA.
[2018-08-17 17:35] LABS: ANION GAP 14.4 (8-16); CARBON DIOXIDE 25.7 mmol/L (21-32); CHLORIDE 101 mmol/L (98-107); CREATININE 1.9 mg/dL (0.6-1.3); GLUCOSE 131 mg/dL (74-106); POTASSIUM 4.1 mmol/L (3.5-5.1); SODIUM SERUM 137 mmol/L (136-145); UREA NITROGEN, BLOOD 51 mg/dL (7-18)
[2018-08-17 17:48] LABS: ALBUMIN 2.6 g/dL (3.4-5.0); AMYLASE 33 U/L (25-115); ASPARTATE AMINOTRANSFERASE 23 U/L (15-37); FREE T4 (FREE THYROXINE) 1.25 ng/dL (0.76-1.46); LIPASE 75 U/L (73-393); MAGNESIUM 1.7 mg/dL (1.8-2.4); THYROID STIMULATING HORMONE 0.68 uIU/mL (0.34-3.74); TOTAL BILIRUBIN 0.3 mg/dL (0.0-1.0)
[2018-08-17 18:06] LABS: ACETONE, SERUM NEGATIVE (NEGATIVE)
[2018-08-17 18:24] LABS: CREATINE KINASE MB 0.7 ng/mL (0-3.6)
[2018-08-17 18:32] LABS: APPEARANCE,URINE CLEAR (CLEAR); BILIRUBIN,URINE NEGATIVE (NEGATIVE); BLOOD, URINE NEGATIVE (NEGATIVE); COLOR,URINE YELLOW (YELLOW); LEUKOCYTE ESTERASE ,URINE NEGATIVE (NEGATIVE); NITRITE, URINE NEGATIVE (NEGATIVE); PH,URINE 7.5 (5.0-9.0); UGLUCOSE NEGATIVE (NEGATIVE)
--- NOTE | 2018-08-17 18:32 | NUR ---
XRAY AT BEDSIDE FOR INTERVENTION.
[2018-08-17] MEDS: NACL 0.9% 1,000 ML IV SCH (18:50)
[2018-08-17] MEDS ORDERED: ACETAMINOPHEN 325 MG TAB PO PRN (18:50)
[2018-08-17] MEDS ORDERED: HYDROcodone/APAP 7.5/325 MG 1 TAB PO PRN (18:50)
[2018-08-17] MEDS ORDERED: ONDANSETRON 4 MG/2 ML VIAL IM/IVP PRN (18:50)
[2018-08-17] MEDS ORDERED: MORPHINE SULFATE 2 MG/ML SYR IVP PRN (18:50)
[2018-08-17] MEDS ORDERED: DOCUSATE SODIUM 100 MG GELCAP PO PRN ×2 (18:50→20:05)
[2018-08-17] MEDS ORDERED: ALBUTEROL SULFATE/IPRATROPIU 3 ML SOL IH PRN (18:55)
--- NOTE | 2018-08-17 19:12 | NUR ---
Patient will be admitted to care of DR. ARMENTA. Admited to [facility]. Will go to room 118. Belongings list completed. Report to VASQUEZ SALEEM.
[2018-08-17] MEDS ORDERED: LEVOFLOXACIN 500 MG/D5W PREMIX 100 ML IV ONE (19:15)
[2018-08-17 19:30] VITALS: BP 167/78
--- NOTE | 2018-08-17 19:45 | NUR ---
RECEIVED BEDSIDE REPORT FROM VASQUEZ FOR CONTINUITY OF CARE. PATIENT AWAKE, ALERT, RESPIRATION EVEN UNLABORED ON ROOM AIR. SKIN IS WARM AND DRY. IV PATENT AND INTACT. LEFT BELOW THE KNEE AMP NOTED. PROSTHESIS DEVICE NOTED AND WITHIN REACH. MRSA SCREEN DONE. VITALS WERE TAKEN. PLAN OF CARE WAS DISCUSSED. ALL SAFETY MEASURES ARE IN PLACE. FALL RISK PROTOCOL IN PLACE. BED IS AT LOW POSITION. CALL LIGHT WITHIN REACH AND VERBALIZES ITS USE. WILL CONTINUE TO MONITOR.
[2018-08-17] MEDS: ALBUTEROL SULFATE/IPRATROPIU 3 ML SOL IH SCH (19:48)
--- NOTE | 2018-08-17 20:00 | NUR ---
INITIAL ASSESSMENT DONE. ALL SCHEDULE MEDS DUE WERE GIVEN PER ORDER. PLACED PATIENT SEMI-CASAREZ POSITION. RT AT BEDSIDE. PLACED PT ON 2L NC. WILL CONTINUE TO MONITOR
[2018-08-17] MEDS ORDERED: MELATONIN 3 MG TAB PO PRN (20:05)
--- NOTE | 2018-08-17 20:10 | NUR ---
CHECKED G-TUBE PLACEMENT. OBTAINED 1CC RESIDUAL.
--- NOTE | 2018-08-17 20:17 | NUR ---
HHNTX GIVEN. PLACED PT ON 2LNC. PT DID POOR WITH THE INCENTIVE SPIROMETER. 500CC X 5 BREATHS
[2018-08-17 20:54] LABS: CHOL/HDL RATIO 2.9 (1-4.5); THYROID STIMULATING HORMONE 0.73 uIU/mL (0.34-3.74)
[2018-08-17] MEDS ORDERED: NON-FORMULARY ITEM (Dorzolamide HCl/Timolol Maleat (Dorzolamide-Timolol Eye Drops) 1 DROP) BOTH EYES SCH (21:00)
[2018-08-17] MEDS: BRIMONIDINE TARTRATE 0.2% OP 5 ML BTL BOTH EYES SCH (21:00)
[2018-08-17] MEDS: LATANOPROST 0.005% OP 2.5 ML BTL BOTH EYES SCH (21:00)
[2018-08-17] MEDS: APIXABAN 2.5 MG TAB PO SCH (21:00)
--- NOTE | 2018-08-17 21:00 | NUR ---
ALPHAGEN 0.2% OPT, XALATAN 0.005% OPT AND ELIQUIS NOT ADMINISTERED DUE TO MEDICATION UNAVAILABLE.
[2018-08-17] MEDS: CLINDAMYCIN 600 MG in DEXTROSE 5% 50 ML IV SCH (21:23)
[2018-08-17] MEDS: OLANZapine 2.5 MG TAB PO SCH (21:24)
[2018-08-17] MEDS ORDERED: CLINDAMYCIN 600 MG/4 ML VIAL ONE (21:24)
[2018-08-17] MEDS ORDERED: cefTRIAXone 1,000 MG VIAL ONE (21:25)
[2018-08-17] MEDS ORDERED: OLANZapine 5 MG TAB ONE (21:27)
--- NOTE | 2018-08-17 22:18 | NUR ---
CHECKED PATIENT. PATIENT LYING IN BED WATCHING TV RESPIRATION EVEN UNLABORED ON 2L OF O2 VIA NC. NO DISTRESS NOTED. WILL CONTINUE TO MONITOR
[2018-08-18] VITALS: BP 136/90
--- NOTE | 2018-08-18 | NUR ---
VITALS WERE TAKEN. PATIENT CONDITION STABLE. WILL CONTINUE TO MONITOR
--- NOTE | 2018-08-18 02:00 | NUR ---
CHECKED PATIENT. PATIENT SLEEPING RESPIRATION EVEN UNLABORED ON 2L OF O2 VIA NC. NO DISTRESS NOTED. WILL CONTINUE TO MONITOR
[2018-08-18] MEDS: CLINDAMYCIN 600 MG in DEXTROSE 5% 50 ML IV SCH (04:20)
[2018-08-18] MEDS ORDERED: CLINDAMYCIN 600 MG/4 ML VIAL ONE (04:26)
[2018-08-18 06:48] LABS: BASOPHILS % (AUTO) 0.1 % (0.0-2.0); HEMATOCRIT 29.2 % (36-48); HEMOGLOBIN 9.5 g/dL (12.0-16.0); LYMPHOCYTES # (AUTO) 0.6 K/uL (2.5-16.5); LYMPHOCYTES % (AUTO) 19.2 % (20.5-51.1); MEAN CORPUSCULAR HEMOGLOBIN 33 pg (27-31); MEAN CORPUSCULAR HGB CONC 33 g/dL (33-37); MEAN CORPUSCULAR VOLUME 99.5 fL (80-94); MONOCYTES # (AUTO) 0.1 K/uL (0.8-1.0); MONOCYTES % (AUTO) 3.9 % (1.7-9.3); NEUTROPHILS # (AUTO) 2.6 K/uL (1.8-7.7); NEUTROPHILS % (AUTO) 76.8 % (42.2-75.2); PLATELET COUNT (AUTO) 124 K/uL (140-450); RED BLOOD CELL COUNT(AUTO) 2.93 MIL/uL (4.20-5.40); RED CELL DISTRIBUTION WIDTH 17.8 % (11.6-13.7); WHITE BLOOD COUNT (AUTO) 3.4 K/uL (4.8-10.8)
[2018-08-18] MEDS: ALBUTEROL SULFATE/IPRATROPIU 3 ML SOL IH SCH ×3 (06:56→19:20)
[2018-08-18 07:23] LABS: ANION GAP 17.7 (8-16); CARBON DIOXIDE 22.3 mmol/L (21-32); CHLORIDE 102 mmol/L (98-107); CREATININE 1.7 mg/dL (0.6-1.3); GLUCOSE 204 mg/dL (74-106); SODIUM SERUM 137 mmol/L (136-145); UREA NITROGEN, BLOOD 42 mg/dL (7-18)
[2018-08-18 07:25] LABS: MAGNESIUM 2.2 mg/dL (1.8-2.4); PHOSPHORUS 4.4 mg/dL (2.5-4.9)
--- NOTE | 2018-08-18 07:29 | NUR ---
ENDORSED PATIENT TO DAY SHIFT NURSE FOR CONTINUITY OF CARE. PATIENT STABLE AT THIS TIME. Addendum: 08/18/18 at [id number] by Es Light RN DUPLICATE
--- NOTE | 2018-08-18 07:29 | NUR ---
ENDORSED PATIENT TO DAY SHIFT NURSE FOR CONTINUITY OF CARE. PATIENT STABLE AT THIS TIME.
[2018-08-18 08:00] VITALS: BP 138/68
--- NOTE | 2018-08-18 08:49 | NUR ---
PATIENT HAS BEEN SCREENED AND CATEGORIZED HIGH NUTRITION RISK. PATIENT WILL BE SEEN WITHIN 1-2 DAYS OF ADMISSION. 08/18/18-08/19/[address]
[2018-08-18] MEDS: LACTOBACILLUS RHAMNOSUS GG 1 EACH CAP PO SCH ×2 (09:00→10:37)
[2018-08-18] MEDS: BRIMONIDINE TARTRATE 0.2% OP 5 ML BTL BOTH EYES SCH ×2 (09:00→21:00)
--- NOTE | 2018-08-18 09:00 | NUR ---
SPOKE WITH PHARMACY LAITH BRIMOMIDINE TARTRATE NOT IN STOCK ON ORDER AT THIS TIME.
[2018-08-18] MEDS: MEGESTROL 40 MG TAB PO SCH (10:37)
[2018-08-18] MEDS: FAMOTIDINE 20 MG TAB GT SCH ×2 (10:37→20:01)
[2018-08-18] MEDS: OLANZapine 2.5 MG TAB PO SCH ×2 (10:38→20:50)
[2018-08-18] MEDS: LACTULOSE 20 GM/30 ML UDC PO SCH (10:38)
[2018-08-18] MEDS: DOCUSATE SODIUM 100 MG GELCAP PO SCH (10:38)
[2018-08-18] MEDS: TIMOLOL OP 0.5% 5 ML BTL OP SCH ×2 (10:39→20:48)
[2018-08-18] MEDS: DORZOLAMIDE 2% OP 10 ML BTL OP SCH ×2 (10:39→20:47)
--- NOTE | 2018-08-18 11:11 | NUR ---
PT ABLE TO SWALLOW WATER AND APPLESAUCE WITH NO ISSUE AT THIS TIME. WILL CONTINUE TO MONITOR
[2018-08-18] MEDS: APIXABAN 2.5 MG TAB PO SCH ×2 (11:56→20:55)
--- NOTE | 2018-08-18 12:36 | NUR ---
PT PLACED ON REGULAR MECHANICAL SOFT DIET AT THIS TIME. FNS PREPARING LUNCH AT THIS TIME. WILL CONTINUE TO MONITOR.
--- NOTE | 2018-08-18 12:48 | NUR ---
S.T. BEDSIDE SWALLOW EVAL COMPLETED See report for details. Pt presents w/ mild difficulties with mastication of solids due to being edentulous, resulting in prolonged mastication/gumming and mild diffuse oral residue of solids after swallow. Pt insists her baseline diet is regular textures. No overt s/s aspiration observed across textures. However, due to the aforementioned, it is recommended that pt be given a mechanical soft chopped diet, thin liquids okay. Pt appears to be functioning at baseline level. No further tx indicated at this time. DC to [facility]. Time: [id number]
--- NOTE | 2018-08-18 14:02 | NUR ---
08/18/18 RD INITIAL ASSESSMENT COMPLETED PLEASE REFER TO NUTRITION ASSESSMENT UNDER CARE ACTIVITY FOR ESTIMATED NUTRITIONAL NEEDS. 1. CONTINUE [place] SOFT CCHO 60 GM DIET TOLERATED 2. IF PO INTAKE FALLS BELOW 75% CONSIDER IMPLEMENTING ENTERAL NUTRITION WITH GLUCERNA @ 60 ML/HR WITH FWF 95 ML Q4H -THIS WILL PROVIDE 1728 KCAL AND 86 GM OF PROTEIN, MEETING 100% OF ESTIMATED NEEDS 3. RD TO FOLLOW-UP 2-3 DAYS, HIGH RISK [facility]
--- NOTE | 2018-08-18 14:15 | NUR ---
SPOKE WITH BARBIE AT [facility]. BARBIE WILL BRING EYEDROPS COFOPT ON 08/19/2018
[2018-08-18] MEDS: CLINDAMYCIN PHOS 600MG/D5W PM 50 ML IV SCH ×2 (14:34→20:46)
[2018-08-18 16:00] VITALS: BP 126/64
--- NOTE | 2018-08-18 17:22 | NUR ---
PT LYING IN BED WATCHING TV IN STABLE CONDITION. CALL LIGHT AT BEDSIDE. BED IN LOW POSITION. BED ALARM ON.
--- NOTE | 2018-08-18 18:26 | NUR ---
IV OUT OF PT ARM DUE TO ARM POSITIONING. NO INJURY TO IV SITE NOTED. PT IN STABLE CONDITION. WILL CONTINUE TO MONITOR.
--- NOTE | 2018-08-18 19:30 | NUR ---
GAVE REPORT TO COMPOSING MACHINE OPERATOR/TENDER NURSE FOR CONTINUITY OF CARE. PT IN STABLE CONDITION.
--- NOTE | 2018-08-18 19:35 | NUR ---
RECEIVED BEDSIDE REPORT FROM DAY SHIFT NURSE FOR CONTINUITY OF CARE. PATIENT AWAKE, ALERT, COOPERATIVE RESPIRATION EVEN UNLABORED ON ROOM AIR. SATING 96%. SKIN IS WARM AND DRY. LEFT BKA NOTED. PROSTHESIS DEVICE NOTED AND WITHIN. G-TUBE INTACT AND NO SIGN AND SYMPTOMS OF INFECTION. PLAN OF CARE WAS DISCUSSED. ALL SAFETY MEASURES ARE IN PLACE. FALL RISK PROTOCOL IN PLACE. BED IS AT LOW POSITION. CALL LIGHT WITHIN REACH AND VERBALIZES ITS USE. WILL CONTINUE TO MONITOR.
--- NOTE | 2018-08-18 20:00 | NUR ---
PATIENT COMPLAINED OF HEARTBURN. NOTIFIED DR. HERNANDEZ ADMINISTERED PER ORDER. WILL CONTINUE TO MONITOR.
--- NOTE | 2018-08-18 20:00 | NUR ---
INSERTED NEW IV LINE TO RIGHT WRIST 24G. IV PATENT AND INTACT. WILL CONTINUE TO MONITOR.
[2018-08-18] MEDS ORDERED: FAMOTIDINE 20 MG TAB PO SCH (20:30)
--- NOTE | 2018-08-18 20:45 | NUR ---
ALPHAGEN 0.2% OPT, XALATAN 0.005% OPT NOT ADMINISTERED DUE TO MED UNAVAILABLE. AWAITING FOR PHARMACY TO STOCK THE MEDICATION.
--- NOTE | 2018-08-18 20:45 | NUR ---
INITIAL ASSESSMENT DONE. PATIENT IN ROOM AIR NOW SATING 96% NO DISTRESS NOTED. ALL SCHEDULE MEDS WERE GIVEN PER ORDER. CALL LIGHT WITHIN REACH. WILL CONTINUE TO MONITOR.
[2018-08-18] MEDS: LATANOPROST 0.005% OP 2.5 ML BTL BOTH EYES SCH (21:00)
[2018-08-18] MEDS: NACL 0.9% 1,000 ML IV SCH (21:16)
--- NOTE | 2018-08-18 21:50 | NUR ---
PATIENT ASKED FOR SLEEPING AID. PRN MELATONIN ADMINISTERED PER ORDER. WILL CONTINUE TO MONITOR.
--- NOTE | 2018-08-18 22:41 | NUR ---
PATIENT LYING IN BED WATCHING TV IN STABLE CONDITION. RESPIRATION EVEN UNLABORED ON ROOM AIR. CALL LIGHT WITHIN REACH.
--- NOTE | 2018-08-18 23:00 | NUR ---
PATIENT ACCIDENTALLY PULLED HER IV OUT. CANNULA INTACT. NO ACTIVE BLEEDING SEEN. PATIENT IN STABLE CONDITION. WILL CONTINUE TO MONITOR.
[2018-08-19] VITALS: BP 119/63
--- NOTE | 2018-08-19 | NUR ---
VITALS WERE TAKEN. PATIENT IN STABLE CONDITION. CALL LIGHT AT BEDSIDE. WILL CONTINUE TO MONITOR.
--- NOTE | 2018-08-19 02:00 | NUR ---
CHECKED PATIENT. PATIENT SLEEPING RESPIRATION EVEN UNLABORED NO DISTRESS NOTED. CALL LIGHT WITHIN REACH. WILL CONTINUE TO MONITOR
--- NOTE | 2018-08-19 04:00 | NUR ---
CHECKED PATIENT. PATIENT IN STABLE CONDITION. NO DISTRESS NOTED. WILL CONTINUE TO MONITOR
[2018-08-19] MEDS: CLINDAMYCIN PHOS 600MG/D5W PM 50 ML IV SCH ×3 (04:10→21:17)
[2018-08-19 06:59] LABS: BASOPHILS % (AUTO) 0.1 % (0.0-2.0); HEMATOCRIT 23.7 % (36-48); HEMOGLOBIN 7.9 g/dL (12.0-16.0); LYMPHOCYTES # (AUTO) 1.2 K/uL (2.5-16.5); LYMPHOCYTES % (AUTO) 27.7 % (20.5-51.1); MEAN CORPUSCULAR HEMOGLOBIN 33 pg (27-31); MEAN CORPUSCULAR HGB CONC 33 g/dL (33-37); MEAN CORPUSCULAR VOLUME 99.7 fL (80-94); MONOCYTES % (AUTO) 23.4 % (1.7-9.3); NEUTROPHILS % (AUTO) 48.8 % (42.2-75.2); PLATELET COUNT (AUTO) 107 K/uL (140-450); RED BLOOD CELL COUNT(AUTO) 2.37 MIL/uL (4.20-5.40); WHITE BLOOD COUNT (AUTO) 4.2 K/uL (4.8-10.8)
[2018-08-19] MEDS: ALBUTEROL SULFATE/IPRATROPIU 3 ML SOL IH SCH ×3 (07:00→18:44)
--- NOTE | 2018-08-19 07:05 | NUR ---
RECEIVED PT FROM WATER PLUMBER NURSEJULIUS, PT IS AWAKE AND LYING OPN THE BED WITH SIDE RAILS UP AND CALL LIGHT WITHIN REACH, PT HAS A G-TUBE IN PLACE, INTACT, AND HAS AN IV LINE ON THE RT HAND G. 24 WITH NS AT 10ML/HR INFUSING AND INTACT. FALL AND SAFETY PRECAUTION INITIATED AND BED ALARM ACTIVATED, PT DENIES PAIN AND NO SOB NOTED. PT IS ON MED-SURG. WILL MONITOR PT.
[2018-08-19 08:00] VITALS: BP 127/59
--- NOTE | 2018-08-19 08:05 | NUR ---
PT IS AWAKE AND VITAL SIGNS CHECKED AND BP IS 127/59, TEMP. IS 97.6, PULSE IS 85, O2 SATURATION IS 100% AND RESPIRATION IS 18/MIN AND EVEN. NO SIGN OF DISTRESS NOTED AND WILL MONITOR PT.
[2018-08-19 08:11] LABS: MAGNESIUM 1.8 mg/dL (1.8-2.4); PHOSPHORUS 3.1 mg/dL (2.5-4.9)
--- NOTE | 2018-08-19 08:50 | NUR ---
PT IS AWAKE AND MEDICATIONS WERE GIVEN AND PT TOOK IT VIA ORAL ROUTE, PARAMETERS CHECKED AND SWALLOWING REFLEX IS WELL TOLERATED. NO SIGN OF DISTRESS NOTED AND WILL MONITOR PT.
[2018-08-19] MEDS: DOCUSATE SODIUM 100 MG GELCAP PO SCH (09:00)
[2018-08-19] MEDS: APIXABAN 2.5 MG TAB PO SCH ×2 (09:00→21:17)
[2018-08-19] MEDS: OLANZapine 2.5 MG TAB PO SCH ×2 (09:00→21:15)
[2018-08-19] MEDS: MEGESTROL 40 MG TAB PO SCH (09:00)
[2018-08-19] MEDS: BRIMONIDINE TARTRATE 0.2% OP 5 ML BTL BOTH EYES SCH ×2 (09:00→21:00)
[2018-08-19] MEDS: TIMOLOL OP 0.5% 5 ML BTL OP SCH ×2 (09:00→21:17)
[2018-08-19] MEDS: DORZOLAMIDE 2% OP 10 ML BTL OP SCH ×2 (09:00→21:17)
[2018-08-19] MEDS: LACTULOSE 20 GM/30 ML UDC PO SCH (09:00)
--- NOTE | 2018-08-19 09:15 | NUR ---
PT, DI IS ON THE BEDSIDE AND ASSESSED THE PT TO AMBULATE BUT PT REFUSED TO PUT HER PROSTHESIS ON. PT JUST HAD THE PT STOOD UP AND ASSESSED THE GAIT. NO SIGN OF DISTRESS NOTED
--- NOTE | 2018-08-19 10:41 | NUR ---
Inspector Type Note: Per Holly Weldon from [place] , patient is on a 7 day bed hold and is one of their snf patients. She stated patient is self responsible with medical decisions and patient does not have an existing Advance Directive. Holly told me patient's significant other is Maximo Barcenas . Holly stated patient has a niece and their Project Economist Sofie from [facility] will call me today to provide me with niece�s name and phone number.
[2018-08-19 10:57] LABS: FOLIC ACID > 20.00 ng/mL (>3.0)
[2018-08-19 11:24] LABS: TRANSFERRIN 191 mg/dL (200-370)
[2018-08-19 11:28] LABS: ANION GAP 16.4 (8-16); CARBON DIOXIDE 21.1 mmol/L (21-32); CHLORIDE 106 mmol/L (98-107); CREATININE 1.7 mg/dL (0.6-1.3); GLUCOSE 119 mg/dL (74-106); POTASSIUM 4.5 mmol/L (3.5-5.1); SODIUM SERUM 139 mmol/L (136-145)
--- NOTE | 2018-08-19 11:39 | NUR ---
FRITZ FROM LAB CALLED AND INFORMED THAT PT WAS POSITIVE FOR MRSA OF NARES, ACKNOWLEDGED AND WILL NOTIFY
[2018-08-19 11:40] LABS: UREA NITROGEN, BLOOD 47 mg/dL (7-18)
--- NOTE | 2018-08-19 11:50 | NUR ---
INFORMED DR. CORRAL THAT PT IS POSITIVE FOR MRSA OF NARES, WILL PLACE AN ORDER.
[2018-08-19] MEDS: CHLORHEXADINE GLUC 2% CLOTH TP SCH (13:56)
[2018-08-19] MEDS: MUPIROCIN CA NASAL 2% 1GM TUBE NS SCH (13:56)
--- NOTE | 2018-08-19 14:01 | NUR ---
PT IS AWAKE AND FRUIT HARVEST MACHINE OPERATOR ON THE BEDSIDE, PT REFUSED TO BE REPOSITIONED NOW AND VERBALIZED THAT SHE FEELS FINE ON HER BOTTOM, MEDICATIONS GIVEN VIA IVPB AND ANTIBIOTIC OINTMENT WAS GIVEN VIA NOSTRILS, MASSAGED AND PT TOLERATED IT. RT ON THE BEDSIDE TO GIVEN A BREATHING TREATMENT. NO SIGN OF DISTRESS NOTED AND WILL MONITOR PT.
--- NOTE | 2018-08-19 14:04 | NUR ---
PT IS HAVING BRREATHING TREATMENT NOW, RT ON THE BEDSIDE.
[2018-08-19 16:00] VITALS: BP 143/75
--- NOTE | 2018-08-19 16:00 | NUR ---
PT IS AWAKE AND VITAL SIGNS TAKEN AND IS WITHIN NORMAL LIMIT, NO SIGN OF DISTRESS NOTED. WILL MONITOR PT.
[2018-08-19] MEDS: NACL 0.9% 1,000 ML IV SCH (18:50)
--- NOTE | 2018-08-19 19:15 | NUR ---
ENDORSED PT TO WIND TURBINE SERVICE TECHNICIAN NURSEJOSHUA FOR CONTINUITY OF CARE, PT IS STABLE AT THIS TIME.
--- NOTE | 2018-08-19 19:20 | NUR ---
RECEIVED ENDORSEMENT FROM AM SHIFT RN; PT IS AWAKE, WATCHING TV, A/Ox4, ABLE TO MAKE NEEDS KNOWN, BEDBOUND. INTRODUCED SELF, UPDATED BOARD. NO SOB OR DISTRESS NOTED. IV SITE ON RIGHT HAND, 24 GAUGE, INTACT. PT HAS A G-TUBE IN PLACE, INTACT. BED IN THE LOWEST POSITION, CALL LIGHT WITHIN REACH. INITIAL ASSESSMENT DONE. WILL CONTINUE TO MONITOR.
[2018-08-19] MEDS: LATANOPROST 0.005% OP 2.5 ML BTL BOTH EYES SCH (21:00)
--- NOTE | 2018-08-19 21:15 | NUR ---
DUE MEDS GIVEN, EXCEPT FOR ALPHAGAN AND XALATAN; MEDICATIONS UNAVAILABLE. TOLERATED MEDICATIONS WELL, PATIENT CAN SWALLOW PILLS.
--- NOTE | 2018-08-19 21:30 | NUR ---
PATIENT REQUESTED FOR SLEEP AID, STATED MELATONIN DID NOT WORK FROM NIGHT BEFORE; DR. GRESHAM MADE AWARE. ORDERS MADE AND CARRIED OUT.
--- NOTE | 2018-08-19 23:30 | NUR ---
VITALS TAKEN, PATIENT ASLEEP, VISIBLE CHEST RISE AND FALL NOTED.
[2018-08-20] VITALS: BP 135/72
--- NOTE | 2018-08-20 01:10 | NUR ---
CHECKS MADE, PATIENT REPOSITIONED. PATIENT WENT BACK TO SLEEP, NO DISTRESS NOTED.
--- NOTE | 2018-08-20 03:30 | NUR ---
ROUNDS MADE, NO SOB OR DISTRESS NOTED.
[2018-08-20] MEDS: CLINDAMYCIN PHOS 600MG/D5W PM 50 ML IV SCH (04:30)
--- NOTE | 2018-08-20 05:40 | NUR ---
PATIENT ASLEEP, SNORING. NO DISTRESS NOTED.
[2018-08-20 07:01] LABS: BASOPHILS % (AUTO) 0.3 % (0.0-2.0); EOSINOPHILS % (AUTO) 0.7 % (0.0-4.0); HEMATOCRIT 27.7 % (36-48); HEMOGLOBIN 9.1 g/dL (12.0-16.0); LYMPHOCYTES # (AUTO) 1.2 K/uL (2.5-16.5); LYMPHOCYTES % (AUTO) 35.2 % (20.5-51.1); MEAN CORPUSCULAR HEMOGLOBIN 33 pg (27-31); MEAN CORPUSCULAR HGB CONC 33 g/dL (33-37); MEAN CORPUSCULAR VOLUME 100.7 fL (80-94); MONOCYTES # (AUTO) 0.8 K/uL (0.8-1.0); MONOCYTES % (AUTO) 22.4 % (1.7-9.3); NEUTROPHILS # (AUTO) 1.4 K/uL (1.8-7.7); NEUTROPHILS % (AUTO) 41.4 % (42.2-75.2); PLATELET COUNT (AUTO) 124 K/uL (140-450); RED BLOOD CELL COUNT(AUTO) 2.75 MIL/uL (4.20-5.40); RED CELL DISTRIBUTION WIDTH 18.1 % (11.6-13.7); WHITE BLOOD COUNT (AUTO) 3.4 K/uL (4.8-10.8)
--- NOTE | 2018-08-20 07:15 | NUR ---
ENDORSED PATIENT TO AM SHIFT RN; PATIENT IN STABLE CONDITION.
--- NOTE | 2018-08-20 07:20 | NUR ---
RECEIVED PT FROM PACKAGING ENGINEER NURSEJOSHUA, PT IS AWAKE AND LYING ON THE BED WITH SIDE RAILS UP AND CVALL LIGHT WITHIN REACH, FALL PRECAUTION INITIATED, BED ALARM ACTIVATED, PT HAS AN IV LINE ON THE RT FA G.22 WITH NS AT 10ML/HR INFUSING AND INTACT. PT HAS A G-TUBE IN PLACE AND INTACT. PT DENIES PAIN AND NO SIGN OF DISTRESS NOTED. WILL MONITOR PT.
[2018-08-20 07:30] LABS: ANION GAP 15.6 (8-16); CHLORIDE 106 mmol/L (98-107); CREATININE 1.8 mg/dL (0.6-1.3); GLUCOSE 107 mg/dL (74-106); POTASSIUM 4.6 mmol/L (3.5-5.1); SODIUM SERUM 139 mmol/L (136-145); UREA NITROGEN, BLOOD 41 mg/dL (7-18)
[2018-08-20] MEDS: ALBUTEROL SULFATE/IPRATROPIU 3 ML SOL IH SCH ×3 (07:36→20:33)
--- NOTE | 2018-08-20 07:38 | NUR ---
PT IS AWAKE AND IS HAVING A BREATHING TX NOW, ISIDRO TELLEZ ON THE BEDSIDE, PT TOLERATING THE TX, PT'S VITAL SIGNS WAS TAKEN AND BP IS 144/65, PULSE IS 78, O2 SATURATION IS 100%, RESPIRATION IS EVEN AT18/MIN AND TEMP. IS 97.6, NO SIGN OF DISTRESS NOTED. WILL MONITOR PT.
[2018-08-20 07:39] LABS: MAGNESIUM 1.7 mg/dL (1.8-2.4); PHOSPHORUS 3.5 mg/dL (2.5-4.9)
[2018-08-20 08:00] VITALS: BP 144/65
[2018-08-20] MEDS: DORZOLAMIDE 2% OP 10 ML BTL OP SCH ×2 (08:21→21:24)
[2018-08-20] MEDS: LACTULOSE 20 GM/30 ML UDC PO SCH (08:21)
[2018-08-20] MEDS: TIMOLOL OP 0.5% 5 ML BTL OP SCH ×2 (08:21→20:50)
[2018-08-20] MEDS: OLANZapine 2.5 MG TAB PO SCH ×2 (08:21→20:49)
[2018-08-20] MEDS: LACTOBACILLUS RHAMNOSUS GG 1 EACH CAP PO SCH (08:22)
[2018-08-20] MEDS: MEGESTROL 40 MG TAB PO SCH (08:22)
[2018-08-20] MEDS: APIXABAN 2.5 MG TAB PO SCH ×2 (08:23→20:47)
[2018-08-20] MEDS: DOCUSATE SODIUM 100 MG GELCAP PO SCH (08:24)
[2018-08-20] MEDS: FAMOTIDINE 20 MG TAB GT SCH (08:24)
--- NOTE | 2018-08-20 08:26 | NUR ---
PT IS AWAKE AND JUST FINISHED EATING HER BREAKFAST, PT VERBALIZED THAT SHE DOES NOT EAT THAT MUCH, V/S CHECKED AND IS WITHIN NORMAL LIMIT, MEDICATIONS WERE GIVEN AND PT TOOK IT ORALLY, SWALLOWING REFLEX IS GOOD, NO SIGN OF DISTRESS NOTED AND WILL MONITOR PT.
[2018-08-20] MEDS ORDERED: MAGNESIUM OXIDE 400 MG TAB PO SCH (09:00)
--- NOTE | 2018-08-20 10:16 | NUR ---
PT'S MG LEVEL IS 1.7 AND IS LOW, REPORTED TO DR. CORRAL AND MD MADE AN ORDER FOR MAGNESIUM OXIDE, 800MG, MEDICATION WAS GIVEN TO PT, PT WAS GIVEN TOP PT AND PT WAS INFORMED OF THE REASON WHY MEDICATION NEEDS TO BE TAKEN AND PT VERBALIZED UNDERSTANDING.
[2018-08-20] MEDS: BRIMONIDINE TARTRATE 0.2% OP 5 ML BTL BOTH EYES SCH ×2 (10:24→20:50)
--- NOTE | 2018-08-20 12:00 | NUR ---
FAXED INQUIRY AND ORDER TO [facility]. CALLED [facility] AND SPOKE WITH BARBIE. AWARE MRSA NARES. FAX [phone]. PHONE [phone]
[2018-08-20] MEDS: MUPIROCIN CA NASAL 2% 1GM TUBE NS SCH (13:02)
[2018-08-20] MEDS: CHLORHEXADINE GLUC 2% CLOTH TP SCH (13:05)
--- NOTE | 2018-08-20 13:06 | NUR ---
PT IS AWAKE AND JUST FINISHED ABOUT 255 OF THE LUNCH TRAY, MEDICATION WERE GIVEN VIA NASAL ROUTE AND CLEANSED WITH CHLORHEXIDINE, PT TOLERATED IT. NO SIGN OF DISTRESS NOTED, DENIES PAIN AND NO SOB. WILL MONITOR PT.
--- NOTE | 2018-08-20 13:16 | NUR ---
08/20/18 RD FOLLOW UP COMPLETED PLEASE REFER TO NUTRITION ASSESSMENT UNDER CARE ACTIVITY FOR ESTIMATED NUTRITIONAL NEEDS. 1. CONTINUE MECHANICAL SOFT CCHO 60 DIET TOLERATED 2. CONTINUE WITH GLUCERNA BID 3. ENCOURAGE PO INTAKE APPROPRIATE 4. RD TO FOLLOW-UP 2-3 DAYS, HIGH RISK [facility], RD
[2018-08-20 16:00] VITALS: BP 140/68
--- NOTE | 2018-08-20 16:20 | NUR ---
PT IS AWAKE AND VITAL SIGNS CHECKED AND IS WITHIN NORMAL LIMIT, G-TUBE WAS CHECKED AND FLUSHED WITH 40ML OF WATER AND IS FLUSHING FINE, WILL INFORM MD.
[2018-08-20] MEDS: NACL 0.9% 1,000 ML IV SCH (18:50)
--- NOTE | 2018-08-20 19:04 | NUR ---
INFORMED DR. GRESHAM THAT PT'S G-TUBE WAS CHECKED AND IS FLUSHING WELL.
--- NOTE | 2018-08-20 19:05 | NUR ---
RECEIVED PATIENT ON ROOM AIR, PULSE OX SAT 100%. PATIENT REFUSING SCHEDULED BREATHING TREATMENT AT THIS TIME. PATIENT STATES "NO, I'M NOT TAKING THAT! I'M EATING CANDY!" ASKED PATIENT IF I COULD RETURN AND CHECK ON HER LATER TO SEE IF SHE WOULD LIKE HER BREATHING TREATMENT AT A LATER TIME. PATIENT REPLIED "I DON'T KNOW WHEN I'LL BE DONE." PATIENT AGREED TO BE ASSESSED. NO ACUTE RESPIRATORY DISTRESS NOTED AT THIS TIME. WILL CONTINUE TO MONITOR.
--- NOTE | 2018-08-20 19:10 | NUR ---
ENDORSED PT TO DIRECTOR LIFE SALES NURSESTAN FOR CONTINUITY OF CARE, PT IS STABLE AT THIS TIME.
--- NOTE | 2018-08-20 19:11 | NUR ---
RECEIVED BEDSIDE REPORT FROM AM SHIFT NURSE, PT IS AWAKE AND LYING ON THE BED. A,O X 4. MS PT. PT HAS AN IV LINE ON THE RT FA G.22 WITH NS AT 10ML/HR INFUSING AND INTACT. PT HAS A G-TUBE IN PLACE AND INTACT, NOT BEING USED. PT PASSED SWALLOW EVAL. PT DENIES PAIN AND NO SIGN OF DISTRESS NOTED. AND CALL LIGHT WITHIN REACH, WITH SIDE RAILS UP. FALL PRECAUTION INITIATED, BED ALARM ACTIVATED,WILL MONITOR PT.
--- NOTE | 2018-08-20 20:44 | NUR ---
SCHEDULED BREATHING TREATMENT ADMINISTERED. TOLERATED TX WELL, NO ADVERSE SIDE EFFECTS. NO RESPIRATORY DISTRESS NOTED. WILL CONTINUE TO MONITOR.
--- NOTE | 2018-08-20 20:45 | NUR ---
RT AT BEDSIDE ONGOING NEBULIZATION.
[2018-08-20] MEDS: LATANOPROST 0.005% OP 2.5 ML BTL BOTH EYES SCH (20:51)
[2018-08-20] MEDS ORDERED: INFLUENZA VIRUS VACCINE QUAD 0.5 ML SYR IMVAC PRN (22:25)
[2018-08-21] VITALS: BP 121/54
--- NOTE | 2018-08-21 01:00 | NUR ---
PT CLEANED AND TURNED Q2. PT HAD 1X BM AT THIS TIME. URINE 1X NOTED
--- NOTE | 2018-08-21 02:15 | NUR ---
CHECKED ON PT PT SLEEPING. NOT IN PAIN. NOT IN RESPIRATORY DISTRESS
[2018-08-21 04:54] VITALS: BP 140/69
--- NOTE | 2018-08-21 05:30 | NUR ---
PT ENCOURAGED TO DRINK GLUCERNA PT SAID SHE DOES NOT WANT TO DRINK. PT IN STABLE CONDITION AT THIS TIME.
[2018-08-21] MEDS: ALBUTEROL SULFATE/IPRATROPIU 3 ML SOL IH SCH ×2 (07:18→13:50)
--- NOTE | 2018-08-21 07:25 | NUR ---
RECEIVED BEDSIDE REPORT FROM [facility]. PT STABLE, AWAKE, AND ALERT AND ORIENTED X4. NO SIGNS OF DISTRESS NOTED. DENIES PAIN OR SOB. NO REDNESS ,SWELLING, OR INFLAMMATION NOTED ON IV SITE. CALL GROSS WITHIN REACH. BED IN LOWEST POSITION. SAFETY MEASURES IN PLACE. PLAN OF CARE REVIEWED.
[2018-08-21 07:30] LABS: BASOPHILS % (AUTO) 0.2 % (0.0-2.0); EOSINOPHILS # (AUTO) 0.1 K/uL (0-0.4); EOSINOPHILS % (AUTO) 1.3 % (0.0-4.0); HEMATOCRIT 28.6 % (36-48); HEMOGLOBIN 9.6 g/dL (12.0-16.0); LYMPHOCYTES # (AUTO) 1.4 K/uL (2.5-16.5); MEAN CORPUSCULAR HEMOGLOBIN 33 pg (27-31); MEAN CORPUSCULAR HGB CONC 33 g/dL (33-37); MEAN CORPUSCULAR VOLUME 99.2 fL (80-94); MONOCYTES # (AUTO) 0.7 K/uL (0.8-1.0); MONOCYTES % (AUTO) 18.7 % (1.7-9.3); NEUTROPHILS # (AUTO) 1.7 K/uL (1.8-7.7); NEUTROPHILS % (AUTO) 44.8 % (42.2-75.2); PLATELET COUNT (AUTO) 130 K/uL (140-450); RED BLOOD CELL COUNT(AUTO) 2.89 MIL/uL (4.20-5.40); RED CELL DISTRIBUTION WIDTH 17.8 % (11.6-13.7); WHITE BLOOD COUNT (AUTO) 3.9 K/uL (4.8-10.8)
[2018-08-21 08:00] VITALS: BP 136/68
[2018-08-21 08:01] LABS: ANION GAP 16.5 (8-16); CARBON DIOXIDE 20.2 mmol/L (21-32); CHLORIDE 106 mmol/L (98-107); CREATININE 1.7 mg/dL (0.6-1.3); POTASSIUM 4.7 mmol/L (3.5-5.1); SODIUM SERUM 138 mmol/L (136-145); UREA NITROGEN, BLOOD 36 mg/dL (7-18)
[2018-08-21 08:07] LABS: MAGNESIUM 1.6 mg/dL (1.8-2.4); PHOSPHORUS 3.2 mg/dL (2.5-4.9)
[2018-08-21] MEDS ORDERED: BACTNA NS ×2 (08:16→08:32)
[2018-08-21] MEDS ORDERED: ROC1PM IV (08:16)
[2018-08-21] MEDS ORDERED: MIRT15TA PO (08:16)
[2018-08-21] MEDS ORDERED: CHLO118S2 TP ×2 (08:16→08:32)
[2018-08-21] MEDS ORDERED: LACT10CA1 PO (08:16)
[2018-08-21] MEDS ORDERED: PRED20TA5 PO (08:25)
[2018-08-21 08:31] LABS: GLUCOSE 127 mg/dL (74-106)
[2018-08-21] MEDS: LACTULOSE 20 GM/30 ML UDC PO SCH ×2 (09:00→09:50)
[2018-08-21] MEDS ORDERED: MAG SULF 2000 MG/WATER PREMIX 50 ML IV SCH (09:00)
--- NOTE | 2018-08-21 09:00 | NUR ---
P.T. NOTES PATIENT REFUSED TO PARTICIPATE WITH P.T. SERVICES IN SPITE OF SEVERAL ENCOURAGEMENTS WERE GIVEN. SHE APPEARS TO BE VERY UPSET AND WAS GOING TO THROW HER MILK CARTON TO THE STAFFS' FACE WHILE EXPLAINING THE BENEFITS OF OUT OF BED ACTIVITIES. INFORMED CHARGE NURSE ABOUT HER BEHAVIOR TOWARDS THE THERAPISTS. PLAN: WE'LL FOLLOW UP ON NEXT SCHEDULED P.T. VISIT IF SHE REMAINS IN THIS HOSPITAL.
[2018-08-21] MEDS: LACTOBACILLUS RHAMNOSUS GG 1 EACH CAP PO SCH (09:47)
[2018-08-21] MEDS: DOCUSATE SODIUM 100 MG GELCAP PO SCH (09:48)
[2018-08-21] MEDS: OLANZapine 2.5 MG TAB PO SCH (09:48)
[2018-08-21] MEDS: FAMOTIDINE 20 MG TAB GT SCH (09:48)
[2018-08-21] MEDS: TIMOLOL OP 0.5% 5 ML BTL OP SCH (09:49)
[2018-08-21] MEDS: BRIMONIDINE TARTRATE 0.2% OP 5 ML BTL BOTH EYES SCH (09:49)
--- NOTE | 2018-08-21 09:49 | NUR ---
ADMINISTERED SCHEDULED MEDICATIONS, PT TOLERATED WELL.
[2018-08-21] MEDS: DORZOLAMIDE 2% OP 10 ML BTL OP SCH (09:50)
[2018-08-21] MEDS: APIXABAN 2.5 MG TAB PO SCH (09:55)
--- NOTE | 2018-08-21 10:08 | NUR ---
CALLED BARBIE AT [facility] AND INFORMED HER THAT THE PATIENT WAS GOING BACK TODAY AND LIKE I TOLD HER YESTERDAY, SHE HAS MRSA OF NARES. BARBIE WILL CALL ME BACK WITH BED NUMBER, LOOKING FOR ISOLATION BED.
--- NOTE | 2018-08-21 11:00 | NUR ---
PT REPOSITIONED, LINENS AND GOWN CHANGED.
--- NOTE | 2018-08-21 12:04 | NUR ---
BARBIE HERE EARLIER AND INFORMED ME NO ISOLATION BED TODAY. I GAVE HER THE PHONE NUMBER TO THE FLOOR WHEN THEY GET A BED. I INFORMED .
--- NOTE | 2018-08-21 12:36 | NUR ---
RECEIVED CALL FROM MARIO SALEEMCOURT ORDERLY NURSE. DR. HERRMANN SAID THE PATIENT IS COLONIZED, DOESN'T NEED ISOLATION. I CALLED BARBIE AT [facility], [phone] AND INFORMED HER. SHE SAID THE PATIENT CAN GO TO ROOM 25C UNDER DR. FINNEGAN. SHE WILL ARRANGE TRANSPORT AND WILL INFORM THE FLOOR. I GAVE HER THE NUMBER TO THE FLOOR.
[2018-08-21] MEDS: MUPIROCIN CA NASAL 2% 1GM TUBE NS SCH (12:45)
[2018-08-21] MEDS: CHLORHEXADINE GLUC 2% CLOTH TP SCH (12:46)
--- NOTE | 2018-08-21 12:46 | NUR ---
ADMINISTERED SCHEDULED MEDICATIONS. PT TOLERATED WELL.
--- NOTE | 2018-08-21 13:53 | NUR ---
CALLED [facility]. THE PATIENT WILL BE PICKED UP BY [facility] AT 4:30P.M. [phone]. I INFORMED NIKKI LAO RN. I FAXED THE ORDER THAT THE MRSA IS COLONIZED TO BARBIE AT [facility] AND THE DISCHARGE ORDER.
--- NOTE | 2018-08-21 14:30 | NUR ---
PT STABLE, SLEEPING, BUT EASILY AROUSABLE. NO NEEDS AT THIS TIME.
--- NOTE | 2018-08-21 16:00 | NUR ---
GAVE REPORT TO ADRIANA FROM [facility].
--- NOTE | 2018-08-21 17:45 | NUR ---
D/C INSTRUCTIONS AND PAPERWORK GIVEN. PT VERBALIZED UNDERSTANDING. QUESTIONS AND CONCERNS WERE ANSWERED. NO REDNESS, SWELLING, OR INFLAMMATION NOTED ON IV SITE, IV KEPT IN PLACE FOR IV ANTIBIOTICS TO BE GIVEN AT [facility]. SKIN INTACT, VACCINES UP TO THE DATE. PT STABLE, AWAKE, AND ALERT. PT PICKED UP BY [facility].
== END 2018-08-21 17:45 | DRG 682 ==
LOC: MED 15:52 → MTU 18:51
PROVIDERS: ADMIT General Practice; ATTEND General Practice
DX: N17.0 Acute kidney failure with tubular necrosis (principal); E43 Unspecified severe protein-calorie malnutrition; J18.9 Pneumonia, unspecified organism; J44.1 Chronic obstructive pulmonary disease with (acute) exacerbation; Z68.1 Body mass index [BMI] 19.9 or less, adult; J98.11 Atelectasis; J44.0 Chronic obstructive pulmonary disease with (acute) lower respiratory infection; E11.51 Type 2 diabetes mellitus with diabetic peripheral angiopathy without gangrene; F17.210 Nicotine dependence, cigarettes, uncomplicated; I10 Essential (primary) hypertension; E11.65 Type 2 diabetes mellitus with hyperglycemia; E86.0 Dehydration; H40.9 Unspecified glaucoma; K59.00 Constipation, unspecified; F29 Unspecified psychosis not due to a substance or known physiological condition; G47.00 Insomnia, unspecified; K21.9 Gastro-esophageal reflux disease without esophagitis; K57.30 Diverticulosis of large intestine without perforation or abscess without bleeding; D63.8 Anemia in other chronic diseases classified elsewhere; E83.51 Hypocalcemia; E83.42 Hypomagnesemia; Z86.718 Personal history of other venous thrombosis and embolism; Z89.512 Acquired absence of left leg below knee; Z79.01 Long term (current) use of anticoagulants; Z79.899 Other long term (current) drug therapy; Z93.1 Gastrostomy status; Z98.51 Tubal ligation status; Z71.3 Dietary counseling and surveillance; Z22.322 Carrier or suspected carrier of Methicillin resistant Staphylococcus aureus; Z79.84 Long term (current) use of oral hypoglycemic drugs
CPT/HCPCS: 36415; 71045; 80048; 80053; 81003; 82009; 82150; 82550; 82553; 82607; 82746; 82948; 83036; 83540; 83605; 83690; 83735; 83880; 84100; 84439; 84443; 84479; 84484; 84550; 85025; 85045; 85379; 85610; 87081; 92610; 93005; 93970; 94640; 96365; 96366; 96375; 97110; 97116; 97530; 99285; J0696; J1956; J2930; J3475; J3490; J7030; J7060; J7620; Q0092; Q0163